=== PATIENT | female | born 1990 | race Caucasian/White ===

== ENCOUNTER 2017-10-30 13:48 | Emergency (ER) | payer OTHER ==
[2017-10-30] MEDS ORDERED: SODIUM CHLORIDE 0.9% 1,000 ML IV STA (14:41)
[2017-10-30] MEDS ORDERED: BENZOCAINE/MENTHOL SPRAY 1 GM/SPRAY AEROSOL TOPICAL STA (14:42)
[2017-10-30] MEDS ORDERED: RX INFO: IV CONTRAST WAS GIVEN 1 EACH MISC MISCELLANE PRN (14:42)
[2017-10-30] MEDS ORDERED: MORPHINE SULFATE 5 MG/ML SYRINGE IVP ONE (14:43)
[2017-10-30] MEDS ORDERED: ONDANSETRON 4 MG/2 ML VIAL IVP STA (14:43)
[2017-10-30 15:09] LABS: Appearance,Urine Clear (Clear); Bilirubin,Urine Negative (Negative); Glucose,Urine (UA) Negative (Negative); Ketones,Urine Negative (Negative); Leukocyte Esterase,Urine Large (Negative); Nitrite,Urine Negative (Negative); PH, Urine 6.5 (5.0-8.0); Particle Count 2316; Protein,Urine Negative (Negative); RBC,Urine 1 /hpf (0-5); Specific Gravity,Urine 1.013 (1.001-1.035); Squamous Epithelial Cell,Urine 3 /hpf (0-4); UA Billing (MACRO vs. MICRO) MICRO; Urobilinogen,Urine <2.0 mg/dL (<2.0); WBC,Urine 7 /hpf (0-5)
[2017-10-30 15:10] LABS: Basophils % (A) 0 %; CH 29.4; CHCM 33.7; Eosinophils # (A) 0.2 k/uL (0-0.7); Eosinophils % (A) 2 %; HCT 44.2 % (34.0-46.0); HGB 14.7 gm/dL (11.4-16.0); Luc % (Auto) 1; Lymphocytes # (A) 1.4 k/uL (1.0-4.8); Lymphocytes % (A) 14 %; MCH 29.1 pg (25.0-35.0); MCHC 33.2 g/dL (31.0-37.0); MCV 87.8 fL (80.0-100.0); Mean Platelet Volume 6.9; Monocytes # (A) 0.7 k/uL (0-1.0); Monocytes % (A) 7 %; Neutrophils # (A) 7.8 k/uL (1.3-7.7); Neutrophils % (A) 77 %; RBC 5.04 m/uL (3.80-5.40); RDW 14.1 % (11.5-15.5); WBC 10.2 k/uL (3.8-10.6); WBC (Perox) 9.86
[2017-10-30 15:15] LABS: Partial Thromboplastin Time 25.7 sec (22.0-30.0); Prothrombin Time 10.1 sec (9.0-12.0)
[2017-10-30 15:23] LABS: ALT 37 U/L (9-52); AST 24 U/L (14-36); Alkaline Phosphatase 67 U/L (38-126); Anion Gap 11 mmol/L; Blood Urea Nitrogen 13 mg/dL (7-17); Calcium 9.6 mg/dL (8.4-10.2); Carbon Dioxide 25 mmol/L (22-30); Chloride 104 mmol/L (98-107); Glucose 101 mg/dL (74-99); Non-African American GFR(MDRD) >60 (>60 ml/min/1.73 sqM); Potassium 4.1 mmol/L (3.5-5.1); Sodium 140 mmol/L (137-145); Total Bilirubin 0.5 mg/dL (0.2-1.3); Total Protein 7.9 g/dL (6.3-8.2)
--- NOTE | 2017-10-30 15:38 | ED ---
GI Bleed HPI - General Chief complaint: GI Bleed Stated complaint: rectal bleeding/pain Time Seen by Provider: 10/30/17 14:31 Source: patient, RN notes reviewed Mode of arrival: ambulatory Limitations: no limitations - History of Present Illness Initial comments: This is a 27-year-old female presents emergency Department chief complaint of rectal pain. Patient states that she's had increasing rectal pain last few days. She states this started after having multiple bowel movements of diarrhea. Patient is concerned that she's had prior rectal abscess with for prior surgeries. She states it's was several years ago. Patient denies any nausea or vomiting. She states that she has a burning type discomfort and noticed some blood and mucus. Patient denies any upper abdominal discomfort denies any dysuria hematuria. Denies any chance . - Related Data Home Medications Medication Instructions Recorded Confirmed Aubra 1 tab PO DAILY@1900 10/30/17 10/30/17 Citalopram Hydrobromide [CeleXA] 10 mg PO DAILY@1900 10/30/17 10/30/17 Previous Rx's Medication Instructions Recorded Hydrocortisone/Pramoxine 1 applic RECTAL BID #1 bottle 10/30/17 [Proctofoam-Hc 1%-1% Foam] Allergies Allergy/AdvReac Type Severity Reaction Status Date / Time No Known Allergies Allergy Verified 10/30/17 14:32 Review of Systems ROS Statement: Those systems with pertinent positive or pertinent negative responses have been documented in the HPI. ROS Other: All systems not noted in ROS Statement are negative. Past Medical History Past Medical History: No Reported History History of Any Multi-Drug Resistant Organisms: None Reported Past Surgical History: No Surgical Hx Reported Additional Past Surgical History / Comment(s): I&D of cyst Past Anesthesia/Blood Transfusion Reactions: No Reported Reaction Past Psychological History: No Psychological Hx Reported Smoking Status: Former smoker Past Alcohol Use History: None Reported Past Drug Use History: Marijuana General Exam Limitations: no limitations General appearance: alert, in no apparent distress Head exam: Present: atraumatic, normocephalic, normal inspection Neck exam: Present: normal inspection. Absent: tenderness, meningismus, lymphadenopathy Respiratory exam: Present: normal lung sounds bilaterally. Absent: respiratory distress, wheezes, rales, rhonchi, stridor Cardiovascular Exam: Present: regular rate, normal rhythm, normal heart sounds. Absent: systolic murmur, diastolic murmur, rubs, gallop, clicks GI/Abdominal exam: Present: soft, normal bowel sounds. Absent: distended, tenderness, guarding, rebound, rigid Rectal exam: Absent: normal inspection (Erythema and rash noted in the perianal region, no obvious hemorrhoids no obvious blood or open lacerations. Patient declined rectal) Back exam: Absent: CVA tenderness (R), CVA tenderness (L) Skin exam: Present: warm, dry, intact, normal color. Absent: rash Course Vital Signs 10/30/17 10/30/17 13:53 15:08 Temperature 98.8 F 98.2 F Pulse Rate 110 H 79 Respiratory 18 16 Rate Blood Pressure 156/72 115/70 O2 Sat by Pulse 96 96 Oximetry Medical Decision Making - Medical Decision Making 27-year-old female presents emergency Department chief complaint rectal pain, rectal bleeding. Patient had a history of rectal abscesses no evidence of infection fracture process on CT. Patient be given hydrocortisone cream, advised take stool softener as she has stool burden, continue to use Tucks pads and continues [id number] rectal care lidocaine jelly - Lab Data Result diagrams: 10/30/17 14:55 10/30/17 14:55 Lab Results 10/30/17 10/30/17 10/30/17 Range/Units 14:55 14:55 14:55 WBC 10.2 (3.8-10.6) k/uL RBC 5.04 (3.80-5.40) m/uL Hgb 14.7 (11.4-16.0) gm/dL Hct 44.2 (34.0-46.0) % MCV 87.8 (80.0-100.0) fL MCH 29.1 (25.0-35.0) pg MCHC 33.2 (31.0-37.0) g/dL RDW 14.1 (11.5-15.5) % Plt Count 240 (150-450) k/uL Neutrophils % 77 % Lymphocytes % 14 % Monocytes % 7 % Eosinophils % 2 % Basophils % 0 % Neutrophils # 7.8 H (1.3-7.7) k/uL Lymphocytes # 1.4 (1.0-4.8) k/uL Monocytes # 0.7 (0-1.0) k/uL Eosinophils # 0.2 (0-0.7) k/uL Basophils # 0.0 (0-0.2) k/uL PT 10.1 (9.0-12.0) sec INR 1.0 (<1.2) APTT 25.7 (22.0-30.0) sec Sodium 140 (137-145) mmol/L Potassium 4.1 (3.5-5.1) mmol/L Chloride 104 (98-107) mmol/L Carbon Dioxide 25 (22-30) mmol/L Anion Gap 11 mmol/L BUN 13 (7-17) mg/dL Creatinine 0.71 (0.52-1.04) mg/dL Est GFR (MDRD) Af Amer >60 (>60 ml/min/1.73 sqM) Est GFR (MDRD) Non-Af >60 (>60 ml/min/1.73 sqM) Glucose 101 H (74-99) mg/dL Calcium 9.6 (8.4-10.2) mg/dL Total Bilirubin 0.5 (0.2-1.3) mg/dL AST 24 (14-36) U/L ALT 37 (9-52) U/L Alkaline Phosphatase 67 (38-126) U/L Total Protein 7.9 (6.3-8.2) g/dL Albumin 4.2 (3.5-5.0) g/dL Urine Color Urine Appearance (Clear) Urine pH (5.0-8.0) Ur Specific [place] (1.001-1.035) Urine Protein (Negative) Urine Glucose (UA) (Negative) Urine Ketones (Negative) Urine Blood (Negative) Urine Nitrite (Negative) Urine Bilirubin (Negative) Urine Urobilinogen (<2.0) mg/dL Ur Leukocyte Esterase (Negative) Urine RBC (0-5) /hpf Urine WBC (0-5) /hpf Ur Squamous Epith Cells (0-4) /hpf Urine HCG, Qual (Not Detectd) 10/30/17 10/30/17 Range/Units 14:55 14:55 WBC (3.8-10.6) k/uL RBC (3.80-5.40) m/uL Hgb (11.4-16.0) gm/dL Hct (34.0-46.0) % MCV (80.0-100.0) fL MCH (25.0-35.0) pg MCHC (31.0-37.0) g/dL RDW (11.5-15.5) % Plt Count (150-450) k/uL Neutrophils % % Lymphocytes % % Monocytes % % Eosinophils % % Basophils % % Neutrophils # (1.3-7.7) k/uL Lymphocytes # (1.0-4.8) k/uL Monocytes # (0-1.0) k/uL Eosinophils # (0-0.7) k/uL Basophils # (0-0.2) k/uL PT (9.0-12.0) sec INR (<1.2) APTT (22.0-30.0) sec Sodium (137-145) mmol/L Potassium (3.5-5.1) mmol/L Chloride (98-107) mmol/L Carbon Dioxide (22-30) mmol/L Anion Gap mmol/L BUN (7-17) mg/dL Creatinine (0.52-1.04) mg/dL Est GFR (MDRD) Af Amer (>60 ml/min/1.73 sqM) Est GFR (MDRD) Non-Af (>60 ml/min/1.73 sqM) Glucose (74-99) mg/dL Calcium (8.4-10.2) mg/dL Total Bilirubin (0.2-1.3) mg/dL AST (14-36) U/L ALT (9-52) U/L Alkaline Phosphatase (38-126) U/L Total Protein (6.3-8.2) g/dL Albumin (3.5-5.0) g/dL Urine Color Yellow Urine Appearance Clear (Clear) Urine pH 6.5 (5.0-8.0) Ur Specific [place] 1.013 (1.001-1.035) Urine Protein Negative (Negative) Urine Glucose (UA) Negative (Negative) Urine Ketones Negative (Negative) Urine Blood Trace H (Negative) Urine Nitrite Negative (Negative) Urine Bilirubin Negative (Negative) Urine Urobilinogen <2.0 (<2.0) mg/dL Ur Leukocyte Esterase Large H (Negative) Urine RBC 1 (0-5) /hpf Urine WBC 7 H (0-5) /hpf Ur Squamous Epith Cells 3 (0-4) /hpf Urine HCG, Qual Not Detected (Not Detectd) Disposition Clinical Impression: Rectal pain, Hemorrhoids Disposition: HOME SELF-CARE Condition: Stable Instructions: Rectal Pain (ED) Additional Instructions: Please return to the Emergency Department if symptoms worsen or any other concerns. Prescriptions: Hydrocortisone/Pramoxine [Proctofoam-Hc 1%-1% Foam] 1 applic RECTAL BID #1 bottle Referrals: Randi Montgomery MD [Primary Care Provider] - 1-2 days Time of Disposition: 16:15
--- NOTE | 2017-10-30 15:44 | CT ---
EXAMINATION TYPE: CT abdomen pelvis w con DATE OF EXAM: 10/30/2017 COMPARISON: 09/17/2010 HISTORY: 27-year-old female with rectal bleeding and pain TECHNIQUE: Contiguous axial scanning of the abdomen and pelvis following administration of 100 ml Omn ipaque 300 IV contrast. Delayed images through the kidneys and coronal/sagittal reconstructions perf ormed. CT DLP: 1854 mGycm Automated exposure control for dose reduction was used. FINDINGS: Heart is normal size without pericardial effusion. Lung bases clear without pleural effusion. Liver enlarged measuring 18.8 cm craniocaudal. No focal lesion is seen. No biliary ductal dilatation. Portal venous system is patent Gallbladder, adrenal glands, kidneys, spleen with anterior splenule, and pancreas appear within jenny l limits. Scattered nonenlarged mesenteric lymph nodes are present. No dilated small bowel, free fluid, or free air. Normal appendix visualized. Moderate stool burden. No pericolonic inflammatory change. Mildly redundant sigmoid colon. Bladder is urine distended. Uterus and ovaries are visualized with follicular change. No abnormal flu id collection in the pelvis. Prominent but not enlarged right inguinal lymph node measures up to 1.3 cm, increased in size from . The distal rectum and anus are relatively collapsed and show no gross abnormality. Bones: No osseous destructive process. IMPRESSION: 1. THE DISTAL RECTUM AND ANUS ARE COLLAPSED AND SHOW NO GROSS ABNORMALITY. 2. MODERATE STOOL BURDEN. NO ACUTE INFLAMMATORY PROCESS IDENTIFIED IN THE ABDOMEN OR PELVIS. 3. BORDERLINE SIZE RIGHT INGUINAL LYMPH NODE MEASURING 1.3 CM PROBABLY REACTIVE/POST INFLAMMATORY. CL INICALLY CORRELATE. 4. HEPATOMEGALY AT 18.8 CM.
[2017-10-30] MEDS ORDERED: WITCH HAZEL 1 EACH MED..PAD TOPICAL STA (16:13)
[2017-10-30 16:42] VITALS: BP 121/66; PULSE 80; RESP 20; TEMP 98
== END 2017-10-30 16:42 | disposition home or self-care (01) ==
LOC: EC 13:48
DX: K64.9 Unspecified hemorrhoids (principal); Z87.891 Personal history of nicotine dependence; Z79.899 Other long term (current) drug therapy
CPT/HCPCS: 36415; 80053; 85025; 85610; 85730; 81001; 81025; 87086; 74177; 99285; 96374; 96375; 96361; J2405; Q9967; J2274

== ENCOUNTER 2018-07-03 12:27 | Emergency (ER) | payer OTHER ==
[2018-07-03 12:43] VITALS: RESP 18; TEMP 98.2
[2018-07-03 13:29] LABS: Appearance,Urine Clear (Clear); Bacteria,Urine Rare /hpf; Bilirubin,Urine Negative (Negative); Blood,Urine Negative (Negative); Color,Urine Yellow; Glucose,Urine (UA) Negative (Negative); Ketones,Urine Negative (Negative); Leukocyte Esterase,Urine Trace (Negative); Nitrite,Urine Negative (Negative); PH, Urine 6.5 (5.0-8.0); Protein,Urine Negative (Negative); RBC,Urine 1 /hpf (0-5); Specific Gravity,Urine 1.013 (1.001-1.035); Squamous Epithelial Cell,Urine 2 /hpf (0-4); Urobilinogen,Urine <2.0 mg/dL (<2.0); WBC,Urine 1 /hpf (0-5)
[2018-07-03] MEDS ORDERED: SODIUM CHLORIDE 0.9% 1,000 ML IV STA (13:41)
[2018-07-03 14:01] LABS: Basophils % (A) 0 %; Eosinophils # (A) 0.2 k/uL (0-0.7); Eosinophils % (A) 3 %; HCT 44.6 % (34.0-46.0); HGB 14.4 gm/dL (11.4-16.0); Lymphocytes % (A) 26 %; MCH 28.7 pg (25.0-35.0); MCHC 32.2 g/dL (31.0-37.0); Mean Platelet Volume 6.3; Monocytes # (A) 0.5 k/uL (0-1.0); Monocytes % (A) 6 %; Neutrophils # (A) 4.7 k/uL (1.3-7.7); Neutrophils % (A) 63 %; Platelet Count 278 k/uL (150-450); RBC 5.02 m/uL (3.80-5.40); RDW 13.3 % (11.5-15.5); WBC 7.5 k/uL (3.8-10.6)
[2018-07-03 14:14] LABS: ALT 35 U/L (9-52); AST 30 U/L (14-36); Alkaline Phosphatase 49 U/L (38-126); Anion Gap 8 mmol/L; Blood Urea Nitrogen 12 mg/dL (7-17); Calcium 9.1 mg/dL (8.4-10.2); Carbon Dioxide 23 mmol/L (22-30); Chloride 109 mmol/L (98-107); Glucose 106 mg/dL (74-99); Magnesium 1.9 mg/dL (1.6-2.3); Potassium 4.5 mmol/L (3.5-5.1); Sodium 140 mmol/L (137-145); Total Bilirubin 0.5 mg/dL (0.2-1.3); Total Protein 7.4 g/dL (6.3-8.2)
--- NOTE | 2018-07-03 14:35 | ED ---
Weakness HPI - General Chief complaint: Weakness Stated complaint: weakness Time Seen by Provider: 07/03/18 13:31 Source: patient, RN notes reviewed Mode of arrival: ambulatory Limitations: no limitations - History of Present Illness Initial comments: 28-year-old female presents emergency Department chief complaint of fatigue, denies fever or chills. Patient states that she felt that she had a fever, she felt hot flush but had no recorded temperature at home. Patient states that she 's had no cold like symptoms including sore throat, headache, dizziness, ear pain, cough or chest congestion. She states that she's been sleeping more than usual even when she gets up and sleeping she still tired. She is concerned about possible thyroid disease. Patient has no specific abdominal pain no dysuria no hematuria. She states that she is due for her menstrual cycle denies any chance . Patient states that she does take control. Patient denies any back pain, chest pain - Related Data Home Medications Medication Instructions Recorded Confirmed Citalopram Hydrobromide [CeleXA] 10 mg PO DAILY@1900 10/30/17 07/03/18 Aviane 0.10/0.02 Control 1 tab PO DAILY@1900 07/03/18 07/03/18 Ibuprofen [Motrin Ib] 400 mg PO Q6H PRN 07/03/18 07/03/18 Allergies Allergy/AdvReac Type Severity Reaction Status Date / Time No Known Allergies Allergy Verified 07/03/18 13:52 Review of Systems ROS Statement: Those systems with pertinent positive or pertinent negative responses have been documented in the HPI. ROS Other: All systems not noted in ROS Statement are negative. Past Medical History Past Medical History: No Reported History History of Any Multi-Drug Resistant Organisms: None Reported Past Surgical History: Section Additional Past Surgical History / Comment(s): I&D of cyst Past Anesthesia/Blood Transfusion Reactions: No Reported Reaction Past Psychological History: Anxiety Smoking Status: Current every day smoker Past Alcohol Use History: Occasional Past Drug Use History: Marijuana General Exam Limitations: no limitations General appearance: alert, in no apparent distress Head exam: Present: atraumatic, normocephalic, normal inspection Eye exam: Present: normal appearance, PERRL, EOMI. Absent: scleral icterus, conjunctival injection, periorbital swelling ENT exam: Present: normal exam, normal oropharynx, mucous membranes moist, TM's normal bilaterally, normal external ear exam Neck exam: Present: normal inspection, full ROM. Absent: tenderness, meningismus, lymphadenopathy Respiratory exam: Present: normal lung sounds bilaterally. Absent: respiratory distress, wheezes, rales, rhonchi, stridor Cardiovascular Exam: Present: regular rate, normal rhythm, normal heart sounds. Absent: systolic murmur, diastolic murmur, rubs, gallop, clicks GI/Abdominal exam: Present: soft, normal bowel sounds. Absent: distended, tenderness, guarding, rebound, rigid Neurological exam: Present: alert, oriented X3, CN II-XII intact Skin exam: Present: warm, dry, intact, normal color. Absent: rash Course Vital Signs 07/03/18 12:39 Temperature 98.2 F Pulse Rate 93 Respiratory 18 Rate Blood Pressure 113/77 O2 Sat by Pulse 100 Oximetry Medical Decision Making - Medical Decision Making 28 show female presented for generalized fatigue weakness. Patient has normal lab workup. Patient may have underlying viral illness or syndrome. Patient will be advised to follow-up with PCP and return for any worsening symptoms. - Lab Data Result diagrams: 07/03/18 13:49 07/03/18 13:49 Lab Results 07/03/18 07/03/18 07/03/18 Range/Units 12:43 12:43 13:49 WBC 7.5 (3.8-10.6) k/uL RBC 5.02 (3.80-5.40) m/uL Hgb 14.4 (11.4-16.0) gm/dL Hct 44.6 (34.0-46.0) % MCV 89.0 (80.0-100.0) fL MCH 28.7 (25.0-35.0) pg MCHC 32.2 (31.0-37.0) g/dL RDW 13.3 (11.5-15.5) % Plt Count 278 (150-450) k/uL Neutrophils % 63 % Lymphocytes % 26 % Monocytes % 6 % Eosinophils % 3 % Basophils % 0 % Neutrophils # 4.7 (1.3-7.7) k/uL Lymphocytes # 2.0 (1.0-4.8) k/uL Monocytes # 0.5 (0-1.0) k/uL Eosinophils # 0.2 (0-0.7) k/uL Basophils # 0.0 (0-0.2) k/uL Sodium (137-145) mmol/L Potassium (3.5-5.1) mmol/L Chloride (98-107) mmol/L Carbon Dioxide (22-30) mmol/L Anion Gap mmol/L BUN (7-17) mg/dL Creatinine (0.52-1.04) mg/dL Est GFR (CKD-EPI)AfAm (>60 ml/min/1.73 sqM) Est GFR (CKD-EPI)NonAf (>60 ml/min/1.73 sqM) Glucose (74-99) mg/dL Plasma Lactic Acid Sushil (0.7-2.0) mmol/L Calcium (8.4-10.2) mg/dL Magnesium (1.6-2.3) mg/dL Total Bilirubin (0.2-1.3) mg/dL AST (14-36) U/L ALT (9-52) U/L Alkaline Phosphatase (38-126) U/L Total Protein (6.3-8.2) g/dL Albumin (3.5-5.0) g/dL TSH (0.465-4.680) mIU/L Urine Color Yellow Urine Appearance Clear (Clear) Urine pH 6.5 (5.0-8.0) Ur Specific [place] 1.013 (1.001-1.035) Urine Protein Negative (Negative) Urine Glucose (UA) Negative (Negative) Urine Ketones Negative (Negative) Urine Blood Negative (Negative) Urine Nitrite Negative (Negative) Urine Bilirubin Negative (Negative) Urine Urobilinogen <2.0 (<2.0) mg/dL Ur Leukocyte Esterase Trace H (Negative) Urine RBC 1 (0-5) /hpf Urine WBC 1 (0-5) /hpf Ur Squamous Epith Cells 2 (0-4) /hpf Urine Bacteria Rare H (None) /hpf Urine HCG, Qual Not Detected (Not Detectd) Heterophile Antibody (Negative) 07/03/18 07/03/18 07/03/18 Range/Units 13:49 13:49 14:00 WBC (3.8-10.6) k/uL RBC (3.80-5.40) m/uL Hgb (11.4-16.0) gm/dL Hct (34.0-46.0) % MCV (80.0-100.0) fL MCH (25.0-35.0) pg MCHC (31.0-37.0) g/dL RDW (11.5-15.5) % Plt Count (150-450) k/uL Neutrophils % % Lymphocytes % % Monocytes % % Eosinophils % % Basophils % % Neutrophils # (1.3-7.7) k/uL Lymphocytes # (1.0-4.8) k/uL Monocytes # (0-1.0) k/uL Eosinophils # (0-0.7) k/uL Basophils # (0-0.2) k/uL Sodium 140 (137-145) mmol/L Potassium 4.5 (3.5-5.1) mmol/L Chloride 109 H (98-107) mmol/L Carbon Dioxide 23 (22-30) mmol/L Anion Gap 8 mmol/L BUN 12 (7-17) mg/dL Creatinine 0.69 (0.52-1.04) mg/dL Est GFR (CKD-EPI)AfAm >90 (>60 ml/min/1.73 sqM) Est GFR (CKD-EPI)NonAf >90 (>60 ml/min/1.73 sqM) Glucose 106 H (74-99) mg/dL Plasma Lactic Acid Sushil 1.0 (0.7-2.0) mmol/L Calcium 9.1 (8.4-10.2) mg/dL Magnesium 1.9 (1.6-2.3) mg/dL Total Bilirubin 0.5 (0.2-1.3) mg/dL AST 30 (14-36) U/L ALT 35 (9-52) U/L Alkaline Phosphatase 49 (38-126) U/L Total Protein 7.4 (6.3-8.2) g/dL Albumin 4.0 (3.5-5.0) g/dL TSH 0.472 (0.465-4.680) mIU/L Urine Color Urine Appearance (Clear) Urine pH (5.0-8.0) Ur Specific [place] (1.001-1.035) Urine Protein (Negative) Urine Glucose (UA) (Negative) Urine Ketones (Negative) Urine Blood (Negative) Urine Nitrite (Negative) Urine Bilirubin (Negative) Urine Urobilinogen (<2.0) mg/dL Ur Leukocyte Esterase (Negative) Urine RBC (0-5) /hpf Urine WBC (0-5) /hpf Ur Squamous Epith Cells (0-4) /hpf Urine Bacteria (None) /hpf Urine HCG, Qual (Not Detectd) Heterophile Antibody Negative (Negative) Disposition Clinical Impression: Fatigue, Viral syndrome Disposition: HOME SELF-CARE Condition: Stable Instructions: Fatigue (ED), Weakness (ED) Additional Instructions: Please return to the Emergency Department if symptoms worsen or any other concerns. Is patient prescribed a controlled substance at d/c from ED?: No Referrals: Randi Montgomery MD [Primary Care Provider] - 1-2 days Time of Disposition: 14:58
[2018-07-03 15:17] VITALS: BP 136/69; PULSE 79
== END 2018-07-03 15:16 | disposition home or self-care (01) ==
LOC: EC 12:27
DX: B34.9 Viral infection, unspecified (principal); F41.9 Anxiety disorder, unspecified; F17.200 Nicotine dependence, unspecified, uncomplicated; Z79.3 Long term (current) use of hormonal contraceptives; Z79.899 Other long term (current) drug therapy
CPT/HCPCS: 36415; 80053; 81001; 81025; 83605; 83735; 84443; 85025; 86308; 96360; 99284

== ENCOUNTER 2018-09-30 15:37 | Emergency (ER) | payer OTHER ==
[2018-09-30 16:07] VITALS: RESP 18; TEMP 98.5
[2018-09-30] MEDS ORDERED: SODIUM CHLORIDE 0.9% 1,000 ML IV ONE (16:37)
[2018-09-30] MEDS ORDERED: methylPREDNISolone SOD SUCCI 125 MG/2 ML VIAL IV ONE (16:37)
[2018-09-30] MEDS ORDERED: IPRATROPIUM-ALBUTEROL 3 ML NEB INHALATION STA (16:37)
--- NOTE | 2018-09-30 16:51 | ED ---
General Adult HPI - General Chief complaint: Upper Respiratory Infection Stated complaint: Abd pain Time Seen by Provider: 09/30/18 16:16 Source: patient Mode of arrival: ambulatory Limitations: no limitations - History of Present Illness Initial comments: Residual female presenting with 1 week of harsh cough, subjective fevers, headache and generalized fatigue. She states that today she began to develop sharp stabbing right lower quadrant pain that is constant, not alleviated or exacerbated by anything, not accompanied by any other symptoms. She denies any nausea vomiting or diarrhea. Cough is productive and is worsening. She's been trying DayQuil without relief. - Related Data Home Medications Medication Instructions Recorded Confirmed Citalopram Hydrobromide [CeleXA] 10 mg PO DAILY@189910/30/17 07/03/18 Aviane 0.10/0.02 Control 1 tab PO DAILY@189907/03/18 07/03/18 Ibuprofen [Motrin Ib] 400 mg PO Q6H PRN 07/03/18 07/03/18 Previous Rx's Medication Instructions Recorded Albuterol Inhaler [Ventolin Hfa 1 - 2 puff INHALATION RT-Q6H PRN 09/30/18 Inhaler] #1 inhaler Dicyclomine [Bentyl] 20 mg PO QID #20 tablet 09/30/18 predniSONE 40 mg PO DAILY 5 Days #10 tab 09/30/18 Allergies Allergy/AdvReac Type Severity Reaction Status Date / Time No Known Allergies Allergy Verified 07/03/18 13:52 Review of Systems ROS Statement: Those systems with pertinent positive or pertinent negative responses have been documented in the HPI. Review of Systems Constitutional: Denies fever, chills Eyes: Denies change in vision, Denies pain Ears, nose, mouth, throat: Denies headaches, Denies sore throat Cardiovascular: Denies chest pain. Denies palpitations Respiratory: Denies shortness of breath, Positive cough Gastrointestinal: Positive abdominal pain. Denies nausea, vomiting, diarrhea. Genitourinary: Denies hematuria, Denies infections Musculoskeletal: Denies pain, Denies swelling Integumentary: Denies rash Neurological: Positive headache, focal weakness, focal numbness Psychiatric: Denies anxiety, Denies depression Hematologic/Lymphatic: Denies easy bleeding or bruising ROS Other: All systems not noted in ROS Statement are negative. Past Medical History Past Medical History: No Reported History History of Any Multi-Drug Resistant Organisms: None Reported Past Surgical History: Section Additional Past Surgical History / Comment(s): I&D of cyst Past Anesthesia/Blood Transfusion Reactions: No Reported Reaction Past Psychological History: Anxiety Smoking Status: Current every day smoker Past Alcohol Use History: Occasional Past Drug Use History: Marijuana General Exam - General Exam Comments Initial Comments: General: Awake, alert, No acute Distress HENT: Normocephalic. Atraumatic. No erythematous TM bilaterally. Post- oropharyngeal erythema Eyes: PERRL. EOMI. No scleral icterus. No injected conjunctiva Neck: Full ROM Chest/Lungs: Bilateral expiratory wheeze and right lower lung field rhonchi. Cardiac: Regular rate, rhythm. No murmurs or rubs Abdomen/GI: Soft, right lower quadrant tenderness. Positive McBurney's point. nondistended. No rebound, guarding, or rigidity. Musculoskeletal: Full ROM Skin: Warm, dry, intact Neurologic: A/Ox3, no weakness, no sensory deficit, no abnormal gait, no coordination deficit Limitations: no limitations Course Vital Signs 09/30/18 09/30/18 09/30/18 16:05 17:03 17:10 Temperature 98.5 F Pulse Rate 64 66 70 Respiratory 18 Rate Blood Pressure 121/74 O2 Sat by Pulse 96 Oximetry 09/30/18 09/30/18 09/30/18 18:07 18:22 19:00 Temperature Pulse Rate 68 89 Respiratory 18 18 Rate Blood Pressure 123/73 112/68 O2 Sat by Pulse 98 93 L 97 Oximetry Medical Decision Making - Medical Decision Making 28-year-old female presenting with URI symptoms and abdominal pain. Initial exam the patient is awake, alert, no acute distress. VSS. Patient's laboratory workup revealed hyperkalemia however the result was immobilized and the patient had no kidney dysfunction. Did not to treat the hyperkalemia. The remainder the patient's laboratory workup was negative for acute process. Chest x-ray and CT abdomen and pelvis were also negative for acute process. She 's a gallstone was seen however the patient has no right upper quadrant tenderness on exam. The patient denied any vaginal bleeding or discharge. Patient initially was complaining of headache and neck pain this is been ongoing for a week. I offered the patient LP but she declined. Very low suspicion for bacterial meningitis at this time. The patient was given prescriptions for prednisone and albuterol inhaler for bronchitis as well as Bentyl for abdominal cramping. The patient was instructed to RTER if her abdominal pain worsens, especially over the next 8-12 hours. No further emergent workup indicated. The patient was given return to ED instructions. They were instructed to follow up with their primary care provider. Stable for discharge at this time. - Lab Data Result diagrams: 09/30/18 17:03 09/30/18 17:03 Lab Results 09/30/18 09/30/18 09/30/18 Range/Units 17:03 17:03 17:03 WBC 8.4 (3.8-10.6) k/uL RBC 4.76 (3.80-5.40) m/uL Hgb 14.4 (11.4-16.0) gm/dL Hct 42.4 (34.0-46.0) % MCV 89.0 (80.0-100.0) fL MCH 30.3 (25.0-35.0) pg MCHC 34.1 (31.0-37.0) g/dL RDW 13.3 (11.5-15.5) % Plt Count 216 (150-450) k/uL Neutrophils % 63 % Lymphocytes % 26 % Monocytes % 6 % Eosinophils % 4 % Basophils % 0 % Neutrophils # 5.3 (1.3-7.7) k/uL Lymphocytes # 2.2 (1.0-4.8) k/uL Monocytes # 0.5 (0-1.0) k/uL Eosinophils # 0.3 (0-0.7) k/uL Basophils # 0.0 (0-0.2) k/uL Sodium 141 (137-145) mmol/L Potassium 5.7 H (3.5-5.1) mmol/L Chloride 110 H (98-107) mmol/L Carbon Dioxide 20 L (22-30) mmol/L Anion Gap 11 mmol/L BUN 10 (7-17) mg/dL Creatinine 0.75 (0.52-1.04) mg/dL Est GFR (CKD-EPI)AfAm >90 (>60 ml/min/1.73 sqM) Est GFR (CKD-EPI)NonAf >90 (>60 ml/min/1.73 sqM) Glucose 82 (74-99) mg/dL Calcium 9.7 (8.4-10.2) mg/dL Urine Color Urine Appearance (Clear) Urine pH (5.0-8.0) Ur Specific [place] (1.001-1.035) Urine Protein (Negative) Urine Glucose (UA) (Negative) Urine Ketones (Negative) Urine Blood (Negative) Urine Nitrite (Negative) Urine Bilirubin (Negative) Urine Urobilinogen (<2.0) mg/dL Ur Leukocyte Esterase (Negative) Urine WBC (0-5) /hpf Ur Squamous Epith Cells (0-4) /hpf Urine Bacteria (None) /hpf Urine HCG, Qual Not Detected (Not Detectd) Heterophile Antibody (Negative) Influenza Type A RNA (Not Detectd) Influenza Type B (PCR) (Not Detectd) Group A Strep Rapid (Negative) 09/30/18 09/30/18 09/30/18 Range/Units 17:03 17:03 17:03 WBC (3.8-10.6) k/uL RBC (3.80-5.40) m/uL Hgb (11.4-16.0) gm/dL Hct (34.0-46.0) % MCV (80.0-100.0) fL MCH (25.0-35.0) pg MCHC (31.0-37.0) g/dL RDW (11.5-15.5) % Plt Count (150-450) k/uL Neutrophils % % Lymphocytes % % Monocytes % % Eosinophils % % Basophils % % Neutrophils # (1.3-7.7) k/uL Lymphocytes # (1.0-4.8) k/uL Monocytes # (0-1.0) k/uL Eosinophils # (0-0.7) k/uL Basophils # (0-0.2) k/uL Sodium (137-145) mmol/L Potassium (3.5-5.1) mmol/L Chloride (98-107) mmol/L Carbon Dioxide (22-30) mmol/L Anion Gap mmol/L BUN (7-17) mg/dL Creatinine (0.52-1.04) mg/dL Est GFR (CKD-EPI)AfAm (>60 ml/min/1.73 sqM) Est GFR (CKD-EPI)NonAf (>60 ml/min/1.73 sqM) Glucose (74-99) mg/dL Calcium (8.4-10.2) mg/dL Urine Color Light Yellow Urine Appearance Cloudy H (Clear) Urine pH 8.0 (5.0-8.0) Ur Specific [place] 1.011 (1.001-1.035) Urine Protein Negative (Negative) Urine Glucose (UA) Negative (Negative) Urine Ketones Negative (Negative) Urine Blood Negative (Negative) Urine Nitrite Negative (Negative) Urine Bilirubin Negative (Negative) Urine Urobilinogen <2.0 (<2.0) mg/dL Ur Leukocyte Esterase Small H (Negative) Urine WBC 6 H (0-5) /hpf Ur Squamous Epith Cells 8 H (0-4) /hpf Urine Bacteria Rare H (None) /hpf Urine HCG, Qual (Not Detectd) Heterophile Antibody (Negative) Influenza Type A RNA Not Detected (Not Detectd) Influenza Type B (PCR) Not Detected (Not Detectd) Group A Strep Rapid Negative (Negative) 09/30/18 Range/Units 17:03 WBC (3.8-10.6) k/uL RBC (3.80-5.40) m/uL Hgb (11.4-16.0) gm/dL Hct (34.0-46.0) % MCV (80.0-100.0) fL MCH (25.0-35.0) pg MCHC (31.0-37.0) g/dL RDW (11.5-15.5) % Plt Count (150-450) k/uL Neutrophils % % Lymphocytes % % Monocytes % % Eosinophils % % Basophils % % Neutrophils # (1.3-7.7) k/uL Lymphocytes # (1.0-4.8) k/uL Monocytes # (0-1.0) k/uL Eosinophils # (0-0.7) k/uL Basophils # (0-0.2) k/uL Sodium (137-145) mmol/L Potassium (3.5-5.1) mmol/L Chloride (98-107) mmol/L Carbon Dioxide (22-30) mmol/L Anion Gap mmol/L BUN (7-17) mg/dL Creatinine (0.52-1.04) mg/dL Est GFR (CKD-EPI)AfAm (>60 ml/min/1.73 sqM) Est GFR (CKD-EPI)NonAf (>60 ml/min/1.73 sqM) Glucose (74-99) mg/dL Calcium (8.4-10.2) mg/dL Urine Color Urine Appearance (Clear) Urine pH (5.0-8.0) Ur Specific [place] (1.001-1.035) Urine Protein (Negative) Urine Glucose (UA) (Negative) Urine Ketones (Negative) Urine Blood (Negative) Urine Nitrite (Negative) Urine Bilirubin (Negative) Urine Urobilinogen (<2.0) mg/dL Ur Leukocyte Esterase (Negative) Urine WBC (0-5) /hpf Ur Squamous Epith Cells (0-4) /hpf Urine Bacteria (None) /hpf Urine HCG, Qual (Not Detectd) Heterophile Antibody Negative (Negative) Influenza Type A RNA (Not Detectd) Influenza Type B (PCR) (Not Detectd) Group A Strep Rapid (Negative) Disposition Clinical Impression: Abdominal pain, Bronchitis, URI (upper respiratory infection) Disposition: HOME SELF-CARE Condition: Good Instructions: Upper Respiratory Infection (ED), Abdominal Pain (ED) Prescriptions: Albuterol Inhaler [Ventolin Hfa Inhaler] 1 - 2 puff INHALATION RT-Q6H PRN #1 inhaler PRN Reason: Wheezing Dicyclomine [Bentyl] 20 mg PO QID #20 tablet predniSONE 40 mg PO DAILY 5 Days #10 tab Is patient prescribed a controlled substance at d/c from ED?: No Referrals: Randi Montgomery MD [Primary Care Provider] - 1-2 days
[2018-09-30 17:19] LABS: Basophils % (A) 0 %; Eosinophils # (A) 0.3 k/uL (0-0.7); Eosinophils % (A) 4 %; HCT 42.4 % (34.0-46.0); HGB 14.4 gm/dL (11.4-16.0); Lymphocytes # (A) 2.2 k/uL (1.0-4.8); Lymphocytes % (A) 26 %; MCH 30.3 pg (25.0-35.0); MCHC 34.1 g/dL (31.0-37.0); Mean Platelet Volume 7.8; Monocytes # (A) 0.5 k/uL (0-1.0); Monocytes % (A) 6 %; Neutrophils # (A) 5.3 k/uL (1.3-7.7); Neutrophils % (A) 63 %; Platelet Count 216 k/uL (150-450); RBC 4.76 m/uL (3.80-5.40); RDW 13.3 % (11.5-15.5); WBC 8.4 k/uL (3.8-10.6)
[2018-09-30 17:23] LABS: Appearance,Urine Cloudy (Clear); Bacteria,Urine Rare /hpf; Bilirubin,Urine Negative (Negative); Blood,Urine Negative (Negative); Color,Urine Light Yellow; Glucose,Urine (UA) Negative (Negative); Ketones,Urine Negative (Negative); Leukocyte Esterase,Urine Small (Negative); Nitrite,Urine Negative (Negative); Protein,Urine Negative (Negative); Specific Gravity,Urine 1.011 (1.001-1.035); Squamous Epithelial Cell,Urine 8 /hpf (0-4); Urobilinogen,Urine <2.0 mg/dL (<2.0)
[2018-09-30 17:31] LABS: Anion Gap 11 mmol/L; Blood Urea Nitrogen 10 mg/dL (7-17); Calcium 9.7 mg/dL (8.4-10.2); Carbon Dioxide 20 mmol/L (22-30); Chloride 110 mmol/L (98-107); Glucose 82 mg/dL (74-99); Sodium 141 mmol/L (137-145)
[2018-09-30 17:32] LABS: Potassium 5.7 mmol/L (3.5-5.1)
[2018-09-30] MEDS ORDERED: KETOROLAC 30 MG/ML 1 ML VIAL IVP SCH (18:00)
--- NOTE | 2018-09-30 18:07 | XR ---
EXAMINATION TYPE: XR chest 2V DATE OF EXAM: 09/30/2018 CLINICAL HISTORY: Pain upper respiratory infection TECHNIQUE: Frontal and lateral views of the chest are obtained. COMPARISON: None FINDINGS: The heart size is normal. The pulmonary vasculature is normal. The lungs are clear. Necklace overlies left apex. IMPRESSION: 1. No acute pulmonary process.
[2018-09-30 19:16] VITALS: PULSE 89
--- NOTE | 2018-09-30 19:50 | CT ---
EXAMINATION TYPE: CT abdomen pelvis w con DATE OF EXAM: 09/30/2018 COMPARISON: 10/30/2017 INDICATION: Right sided pain with nausea and diarrhea DLP: 1299.6 mGycm, Automated exposure control for dose reduction was used. CONTRAST: 100 mL of Isovue 300. Study performed without Oral Contrast TECHNIQUE: Axial images were obtained from above the diaphragm to the pubic rami in the axial plane a t 5 mm thick sections. Reconstructed images are reviewed on the computer in the coronal plane. FINDINGS: Limited CT sections are obtained the lung bases. The lung bases are clear. CT ABDOMEN: Liver: Hepatomegaly measuring 20.9 cm. Normal less than 15.5 cm. This is increased from comparison. Spleen: Normal. Splenule is present. Pancreas: Normal Adrenal glands: The adrenal glands are normal. Gallbladder: Punctate gallstone is noted. Kidneys: No masses are evident. No hydronephrosis is present. No cysts are present. Delayed images were obtained through the kidneys, which remain unremarkable. Aorta: Normal Inferior vena cava: Normal. CT PELVIS: Loops of bowel within the abdomen and pelvis are normal. Studies without oral contrast limiting t he evaluation. Appendix: Normal as visualized. Urinary bladder: Normal. Genitourinary structures: Uterus and ovaries are unremarkable. Osseous structures: No suspicious lytic or sclerotic lesions. IMPRESSIONS: 1. Small gallstone. 2. Hepatomegaly.
[2018-09-30 20:12] VITALS: BP 115/72
== END 2018-09-30 20:13 | disposition home or self-care (01) ==
LOC: EC 15:37
DX: J40 Bronchitis, not specified as acute or chronic (principal); J06.9 Acute upper respiratory infection, unspecified; R10.31 Right lower quadrant pain; Z32.02 Encounter for pregnancy test, result negative; F41.9 Anxiety disorder, unspecified; F17.200 Nicotine dependence, unspecified, uncomplicated; Z79.899 Other long term (current) drug therapy
CPT/HCPCS: 99284; 96374; 96375; 96361 ×2; 36415; 94640; 80048; 85025; 86308; 81001; 81025; 87086; 87081; 87430; 87502; 71046; 74177; J2930; J1885; Q9967

== ENCOUNTER 2020-01-11 03:46 | Emergency (ER) | payer OTHER ==
[2020-01-11 03:56] VITALS: RESP 18; TEMP 97.9
[2020-01-11] MEDS ORDERED: methylPREDNISolone SOD SUCCI 125 MG/2 ML VIAL IV STA (04:31)
[2020-01-11] MEDS ORDERED: MORPHINE SULFATE 4 MG/ML SYRINGE IV STA (04:31)
[2020-01-11 04:44] LABS: Basophils % (A) 0 %; Eosinophils # (A) 0.1 k/uL (0-0.7); Eosinophils % (A) 1 %; HCT 46.3 % (34.0-46.0); HGB 15.3 gm/dL (11.4-16.0); Lymphocytes # (A) 1.4 k/uL (1.0-4.8); Lymphocytes % (A) 17 %; MCH 29.5 pg (25.0-35.0); MCV 89.3 fL (80.0-100.0); Mean Platelet Volume 7.4; Monocytes # (A) 0.4 k/uL (0-1.0); Monocytes % (A) 5 %; Neutrophils % (A) 75 %; Platelet Count 213 k/uL (150-450); RBC 5.18 m/uL (3.80-5.40)
[2020-01-11 04:49] LABS: African American GFR (CKD) >90 (>60 ml/min/1.73 sqM); Anion Gap 9 mmol/L; Blood Urea Nitrogen 10 mg/dL (7-17); Calcium 9.4 mg/dL (8.4-10.2); Carbon Dioxide 26 mmol/L (22-30); Chloride 104 mmol/L (98-107); Glucose 101 mg/dL (74-99); INR 0.9 (<1.2); Non-African American GFR(CKD) >90 (>60 ml/min/1.73 sqM); Sodium 139 mmol/L (137-145)
[2020-01-11 04:50] LABS: Partial Thromboplastin Time 24.4 sec (22.0-30.0); Prothrombin Time 9.7 sec (9.0-12.0)
[2020-01-11 04:51] LABS: Potassium 4.7 mmol/L (3.5-5.1)
--- NOTE | 2020-01-11 05:11 | CT ---
EXAMINATION TYPE: CT lumbar spine w con DATE OF EXAM: 01/11/2020 COMPARISON: HISTORY: pain that radiates down right leg and upper back CT DLP: 1716.60 mGycm Automated exposure control for dose reduction was used. CONTRAST: Performed with IV Contrast, patient injected with 100 mL of Isovue 300. Multiple axial sections were obtained from the level of T12-S4 vertebra with no contrast. Lumbar vertebra have normal alignment. Disc spaces are normal. There is mild posterior central L5-S1 lumbar disc herniation. There is developmentally adequate spinal canal and no spinal stenosis. Sacroi liac joints appear normal. There is no lumbar paraspinal mass. There is no compression fracture. I se e no focal bone destruction. There is small posterior disc bulging also at L4-5. The contrast images show no pathologic enhancement. Abdominal aorta appears normal. Kidneys show satisfactory contrast op acification. There is no hydronephrosis. No renal calculus. IMPRESSION: No spinal stenosis. No fracture. Posterior mild central L5-S1 lumbar disc herniation increased in siz e compared to old CT scan.
--- NOTE | 2020-01-11 06:28 | ED ---
Back Pain HPI - General Chief Complaint: Back Pain/Injury Stated Complaint: Back Pain Time Seen by Provider: 01/11/20 03:51 Source: patient, EMS Limitations: no limitations - History of Present Illness Initial Comments: This patient is a 29-year-old woman presenting to be evaluated for low back pain that also does radiate to her left leg. The patient states that she had been at [facility] in the early afternoon, probably around 1:30 PM. She states that they were performing a lumbar puncture to check her CSF pressure related to concerns about possible pseudotumor. The patient states that apparently there was some difficulty in the procedure did require multiple attempts. She states that she had some soreness and then went home and the soreness only increased. She states that it is a sharp pain, it becomes severe if she is up and moving. She states that it is tolerable when she lies still. No loss of bladder or bowel function. No saddle anesthesia. MD Complaint: back pain -: hour(s) Similar Symptoms Previously: No Place: home Radiation: left leg Severity: severe Quality: sharp Consistency: intermittent Improves With: immobilization Worsens With: movement Context: other (Following attempted lumbar puncture.) Associated Symptoms: denies other symptoms - Related Data Home Medications Medication Instructions Recorded Confirmed Citalopram Hydrobromide [CeleXA] 10 mg PO DAILY@1900 10/30/17 07/03/18 Aviane 0.10/0.02 Control 1 tab PO DAILY@1900 07/03/18 07/03/18 Ibuprofen [Motrin Ib] 400 mg PO Q6H PRN 07/03/18 07/03/18 Previous Rx's Medication Instructions Recorded Albuterol Inhaler [Ventolin Hfa 1 - 2 puff INHALATION RT-Q6H PRN 09/30/18 Inhaler] #1 inhaler Dicyclomine [Bentyl] 20 mg PO QID #20 tablet 09/30/18 predniSONE [Deltasone] 40 mg PO DAILY 5 Days #10 tab 09/30/18 Methocarbamol [Robaxin-750] 750 mg PO TID PRN #30 tablet 01/11/20 predniSONE 60 mg PO DAILY #30 tab 01/11/20 Allergies Allergy/AdvReac Type Severity Reaction Status Date / Time No Known Allergies Allergy Verified 07/03/18 13:52 Review of Systems ROS Statement: Those systems with pertinent positive or pertinent negative responses have been documented in the HPI. ROS Other: All systems not noted in ROS Statement are negative. Constitutional: Denies: fever, chills, weakness Respiratory: Denies: cough, dyspnea Cardiovascular: Denies: chest pain, palpitations, edema Gastrointestinal: Denies: abdominal pain, vomiting, diarrhea, constipation Genitourinary: Denies: dysuria, hematuria Musculoskeletal: Reports: as per HPI, back pain Skin: Denies: rash Neurological: Denies: headache, weakness, numbness, paresthesias Past Medical History Past Medical History: No Reported History History of Any Multi-Drug Resistant Organisms: None Reported Past Surgical History: Section Additional Past Surgical History / Comment(s): I&D of cyst Past Anesthesia/Blood Transfusion Reactions: No Reported Reaction Past Psychological History: Anxiety, Bipolar, PTSD Smoking Status: Current every day smoker Past Alcohol Use History: Occasional Past Drug Use History: Marijuana General Exam Limitations: no limitations General appearance: alert, in no apparent distress Head exam: Present: atraumatic, normocephalic Neck exam: Present: normal inspection, full ROM. Absent: tenderness, meningismus Respiratory exam: Present: normal lung sounds bilaterally. Absent: respiratory distress, wheezes, rales, rhonchi, stridor Cardiovascular Exam: Present: regular rate, normal rhythm, normal heart sounds. Absent: systolic murmur, diastolic murmur, rubs, gallop GI/Abdominal exam: Present: soft. Absent: tenderness, guarding, rebound Extremities exam: Present: normal inspection, normal capillary refill. Absent: pedal edema, calf tenderness Back exam: Present: normal inspection, other (Ur some localized tenderness at the site of the procedure.). Absent: CVA tenderness (R), CVA tenderness (L), p araspinal tenderness, vertebral tenderness Neurological exam: Present: alert, normal gait, reflexes normal. Absent: motor sensory deficit Skin exam: Present: warm, dry, intact, normal color. Absent: rash Course Vital Signs 01/11/20 01/11/20 03:49 06:44 Temperature 97.9 F Pulse Rate 74 70 Respiratory 18 18 Rate Blood Pressure 139/83 120/76 O2 Sat by Pulse 98 97 Oximetry Medical Decision Making - Medical Decision Making Shouldn't is 29-year-old woman presenting requesting pain relief following lumbar puncture. The imaging study is unremarkable. She was given analgesia and was feeling much better. She was ambulating without any difficulty. No signs of any developing cauda equina. Discussed appropriate further care and follow-up. - Lab Data Result diagrams: 01/11/20 04:10 01/11/20 04:10 Lab Results 01/11/20 01/11/20 01/11/20 Range/Units 04:10 04:10 04:10 WBC 8.0 (3.8-10.6) k/uL RBC 5.18 (3.80-5.40) m/uL Hgb 15.3 (11.4-16.0) gm/dL Hct 46.3 H (34.0-46.0) % MCV 89.3 (80.0-100.0) fL MCH 29.5 (25.0-35.0) pg MCHC 33.0 (31.0-37.0) g/dL RDW 13.0 (11.5-15.5) % Plt Count 213 (150-450) k/uL Neutrophils % 75 % Lymphocytes % 17 % Monocytes % 5 % Eosinophils % 1 % Basophils % 0 % Neutrophils # 6.0 (1.3-7.7) k/uL Lymphocytes # 1.4 (1.0-4.8) k/uL Monocytes # 0.4 (0-1.0) k/uL Eosinophils # 0.1 (0-0.7) k/uL Basophils # 0.0 (0-0.2) k/uL PT 9.7 (9.0-12.0) sec INR 0.9 (<1.2) APTT 24.4 (22.0-30.0) sec Sodium 139 (137-145) mmol/L Potassium 4.7 (3.5-5.1) mmol/L Chloride 104 (98-107) mmol/L Carbon Dioxide 26 (22-30) mmol/L Anion Gap 9 mmol/L BUN 10 (7-17) mg/dL Creatinine 0.69 (0.52-1.04) mg/dL Est GFR (CKD-EPI)AfAm >90 (>60 ml/min/1.73 sqM) Est GFR (CKD-EPI)NonAf >90 (>60 ml/min/1.73 sqM) Glucose 101 H (74-99) mg/dL Calcium 9.4 (8.4-10.2) mg/dL Disposition Clinical Impression: Back pain Disposition: HOME SELF-CARE Condition: Good Instructions (If sedation given, give patient instructions): Acute Low Back Pain (ED) Prescriptions: predniSONE 60 mg PO DAILY #30 tab Methocarbamol [Robaxin-750] 750 mg PO TID PRN #30 tablet PRN Reason: pain Is patient prescribed a controlled substance at d/c from ED?: No Referrals: Randi Montgomery MD [Primary Care Provider] - 1-2 days
[2020-01-11 06:46] VITALS: BP 120/76; PULSE 70
== END 2020-01-11 06:47 | disposition home or self-care (01) ==
LOC: EC 03:46
DX: M54.5 Low back pain (principal); G89.18 Other acute postprocedural pain; M79.605 Pain in left leg; F31.9 Bipolar disorder, unspecified; F41.9 Anxiety disorder, unspecified; F17.200 Nicotine dependence, unspecified, uncomplicated; Z79.3 Long term (current) use of hormonal contraceptives; Z79.899 Other long term (current) drug therapy
CPT/HCPCS: 99284; 96374; 96375; 36415; 80048; 85025; 85610; 85730; 72132; J2270; J2930; Q9967

== ENCOUNTER 2020-09-07 20:52 | Inpatient (IN) | payer MEDICAID, OTHER ==
--- NOTE | 2020-09-07 21:06 | ED ---
General Adult HPI - General Chief complaint: Psychiatric Symptoms Stated complaint: Mental health Time Seen by Provider: 09/07/20 21:00 Source: patient Mode of arrival: ambulatory Limitations: no limitations - History of Present Illness Initial comments: Dictation was produced using [employer] dictation software. please excuse any grammatical, word or spelling errors. This patient was cared for during a federal and state declared state of emergency secondary to Covid 19 Chief Complaint: 30-year-old female presents with suicidal ideation History of Present Illness: She is a 30-year-old female she's been under a lot of personal stress recently. She's been feeling suicidal. Patient's plan to overdose on pills. Patient states she has not. She denies any visual auditory hallucinations. She presents to the emergency today with her . Patient does have history of personality disorders. She denies being diagnosed with any sort of specific psychiatric disease. The ROS documented in this emergency department record has been reviewed and confirmed by me. Those systems with pertinent positive or negative responses have been documented in the HPI. All other systems are other negative and/or noncontributory. PHYSICAL EXAM: General Impression: Alert and oriented x3, not in acute distress HEENT: Normocephalic atraumatic, extra-ocular movements intact, pupils equal and reactive to light bilaterally, mucous membranes moist. Cardiovascular: Heart regular rate and rhythm Chest: Able to complete full sentences, no retractions, no tachypnea Abdomen: abdomen soft, non-tender, non-distended, no organomegaly Musculoskeletal: Pulses present and equal in all extremities, no peripheral edema Motor: no focal deficits noted Neurological: CN II-XII grossly intact, no focal motor or sensory deficits noted Skin: Intact with no visualized rashes Psych: Tearful ED course: 30-year-old male presents with suicidal ideation. Signs upon arrival shows heart rate of 106, rest vital signs within acceptable limits. Patient does not appear to be psychotic at this time. Patient evaluated by EPS recommended inpatient psychiatric admission. Patient is voluntarily admitted. - Related Data Home Medications Medication Instructions Recorded Confirmed Citalopram Hydrobromide [CeleXA] 10 mg PO HS 10/30/17 09/07/20 ARIPiprazole [Abilify] 5 mg PO HS 09/07/20 09/07/20 Aviane 0.1-0.02 Tablet 1 tab PO HS 09/07/20 09/07/20 busPIRone HCl [Buspar] 5 mg PO BID 09/07/20 09/07/20 lamoTRIgine [LaMICtal] 150 mg PO HS 09/07/20 09/07/20 Allergies Allergy/AdvReac Type Severity Reaction Status Date / Time No Known Allergies Allergy Verified 09/07/20 22:10 Review of Systems ROS Statement: Those systems with pertinent positive or pertinent negative responses have been documented in the HPI. ROS Other: All systems not noted in ROS Statement are negative. Past Medical History Past Medical History: No Reported History Additional Past Medical History / Comment(s): OCD, borderline personality disorder. History of Any Multi-Drug Resistant Organisms: None Reported Past Surgical History: Section Additional Past Surgical History / Comment(s): I&D of cyst to buttocks Past Anesthesia/Blood Transfusion Reactions: No Reported Reaction Past Psychological History: Anxiety, Bipolar, PTSD Smoking Status: Current every day smoker Past Alcohol Use History: Occasional Past Drug Use History: Marijuana General Exam Limitations: no limitations Course Vital Signs 09/07/20 20:54 Temperature 98.6 F Pulse Rate 106 H Respiratory 18 Rate Blood Pressure 106/70 O2 Sat by Pulse 98 Oximetry Medical Decision Making - Lab Data Lab Results 09/07/20 09/07/20 Range/Units 21:23 21:31 Urine HCG, Qual Not Detected (Not Detectd) Urine Opiates Screen Not Detected (NotDetected) Ur Oxycodone Screen Not Detected (NotDetected) Urine Methadone Screen Not Detected (NotDetected) Ur Propoxyphene Screen Not Detected (NotDetected) Ur Barbiturates Screen Not Detected (NotDetected) U Tricyclic Antidepress Not Detected (NotDetected) Ur Phencyclidine Scrn Not Detected (NotDetected) Ur Amphetamines Screen Detected H (NotDetected) U Methamphetamines Scrn Not Detected (NotDetected) U Benzodiazepines Scrn Not Detected (NotDetected) Urine Cocaine Screen Not Detected (NotDetected) U Marijuana (THC) Screen Detected H (NotDetected) Disposition Clinical Impression: Suicidal ideation Disposition: ADMITTED IP TO THIS [facility] Condition: Fair Referrals: Randi Montgomery MD [Primary Care Provider] - 1-2 days Decision Time: 22:47
[2020-09-07 21:46] LABS: Amphetamine Screen,Urine Detected (NotDetected); Barbiturate Screen,Urine Not Detected (NotDetected); Benzodiazepines Screen,Urine Not Detected (NotDetected); Cocaine Screen,Urine Not Detected (NotDetected); Methadone Screen, Urine Not Detected (NotDetected); Opiate Screen,Urine Not Detected (NotDetected); Oxycodone Screen, Urine Not Detected (NotDetected); Phencyclidine Screen,Urine Not Detected (NotDetected); Tricyclic Antidepressant,Urine Not Detected (NotDetected); Urn Cannabinoid Scrn Detected (NotDetected)
[2020-09-07] MEDS ORDERED: LORazepam 1 MG TAB PO PRN (23:25)
[2020-09-07] MEDS ORDERED: MAGNESIUM HYDROXIDE 2,400 MG/10 ML CUP PO PRN (23:25)
[2020-09-07] MEDS ORDERED: MAG HYDROX/AL HYDROX/SIMETH 30 ML CUP PO PRN (23:25)
[2020-09-07] MEDS ORDERED: LORazepam 2 MG/ML INJ IM PRN (23:27)
[2020-09-07] MEDS ORDERED: CITALOPRAM HYDROBROMIDE 10 MG TAB PO SCH (23:30)
[2020-09-08] MEDS ORDERED: ZIPRASIDONE 20 MG VIAL IM PRN
[2020-09-08] MEDS: busPIRone HCl 5 MG TAB PO SCH ×2 (00:38→09:19)
[2020-09-08] MEDS: ARIPiprazole 5 MG TAB PO SCH ×2 (00:38→20:14)
[2020-09-08] MEDS: lamoTRIgine 100 MG TAB PO SCH ×2 (00:44→20:14)
[2020-09-08] MEDS: AVIANE PO SCH ×2 (01:23→21:26)
[2020-09-08] MEDS: NICOTINE 14MG/24HR PATCH TRANSDERM SCH ×2 (01:24→09:19)
[2020-09-08 02:21] LABS: Appearance,Urine Cloudy (Clear); Bilirubin,Urine Negative (Negative); Blood,Urine Trace (Negative); Color,Urine Yellow; Glucose,Urine (UA) Negative (Negative); Ketones,Urine Negative (Negative); Leukocyte Esterase,Urine Moderate (Negative); Mucus,Urine Rare /hpf; Nitrite,Urine Negative (Negative); PH, Urine 6.5 (5.0-8.0); Protein,Urine Negative (Negative); RBC,Urine 3 /hpf (0-5); Specific Gravity,Urine 1.027 (1.001-1.035); Squamous Epithelial Cell,Urine 11 /hpf (0-4); Urobilinogen,Urine <2.0 mg/dL (<2.0); WBC,Urine 10 /hpf (0-5)
--- NOTE | 2020-09-08 03:59 | P.CONS ---
History of Present Illness - Reason for Consult Consult date: 09/08/20 - History of Present Illness Patient is a 80-year-old female with a PMH of depression who presented to the emergency room with complaints of depressive thoughts and suicidal ideation. The patient reports that she was planning on overdosing on many of her home medications reviewed. Instead, the patient decided to come to the emergency room. She reported continued feelings of depression along with PTSD. She denied any additional complaints however. She denied fever, chills, cough, chest pain, shortness of breath, nausea, vomiting, abdominal pain. Review of Systems Pertinent positives and negatives as discussed in HPI, a complete review of systems was performed and all other systems are negative. Past Medical History Past Medical History: No Reported History Additional Past Medical History / Comment(s): OCD, borderline personality disorder. History of Any Multi-Drug Resistant Organisms: None Reported Past Surgical History: Section Additional Past Surgical History / Comment(s): I&D of cyst to buttocks Past Anesthesia/Blood Transfusion Reactions: No Reported Reaction Past Psychological History: Anxiety, Bipolar, PTSD Smoking Status: Current every day smoker Past Alcohol Use History: Occasional Past Drug Use History: Marijuana Medications and Allergies Home Medications Medication Instructions Recorded Confirmed Type Citalopram Hydrobromide [CeleXA] 10 mg PO HS 10/30/17 09/07/20 History ARIPiprazole [Abilify] 5 mg PO HS 09/07/20 09/07/20 History Aviane 0.1-0.02 Tablet 1 tab PO HS 09/07/20 09/07/20 History busPIRone HCl [Buspar] 5 mg PO BID 09/07/20 09/07/20 History lamoTRIgine [LaMICtal] 150 mg PO HS 09/07/20 09/07/20 History Allergies Allergy/AdvReac Type Severity Reaction Status Date / Time No Known Allergies Allergy Verified 09/08/20 01:53 Physical Exam Vitals: Vital Signs Temp Pulse Pulse Resp BP BP Pulse Ox 09/07/20 23:55 97.3 F L 90 18 138/67 96 09/07/20 23:15 98.6 F 85 16 115/76 98 09/07/20 20:54 98.6 F 106 H 18 106/70 98 Intake and Output 09/07/20 09/07/20 09/08/20 14:59 22:59 06:59 Other: Weight 108.862 kg 108.862 kg General: non toxic, no distress, appears at stated age, morbidly obese Derm: no unusual rashes/lesions no unusual ecchymoses, warm, dry Head: atraumatic, normocephalic, symmetric Eyes: EOMI, no lid lag, anicteric sclera, pupils equal round reactive to light ENT: Nose and ears atraumatic, no thrush, no pharyngeal erythema Neck: No thyromegaly, no cervical lymphadenopathy, trachea midline, supple Mouth: no lip lesion, mucus membranes moist Cardiovascular: S1S2 reg, no murmur, positive posterior tibial pulse bilateral, no edema, capillary refill less than 2 seconds Lungs: CTA bilateral, no rhonchi, no rales , no accessory muscle use Abdominal: soft, nontender to palpation, no guarding, no appreciable organomegaly, normal bowel sounds Ext: no gross muscle atrophy, muscle strength 5 out of 5 in all 4 extremities grossly, no contractures, Neuro: CN II-XI grossly intact, light touch intact all 4 extremities, finger to nose within normal limits, Psych: Alert, oriented, depressed affect Results Labs: Abnormal Lab Results - Last 24 Hours (Table) 09/07/20 09/07/20 Range/Units 21:20 21:31 Urine Appearance Cloudy H (Clear) Urine Blood Trace H (Negative) Ur Leukocyte Esterase Moderate H (Negative) Urine WBC 10 H (0-5) /hpf Ur Squamous Epith Cells 11 H (0-4) /hpf Urine Mucus Rare H (None) /hpf Ur Amphetamines Screen Detected H (NotDetected) U Marijuana (THC) Screen Detected H (NotDetected) Assessment and Plan Plan: Abnormal UA -Patient denying urinary complaints -Likely colonization -Hold off on antibiotics at this time Depression and suicidal ideation -As per psychiatry Thank you for allowing us to participate in the care of this patient. We will follow peripherally. Do not hesitate to contact us with questions. Someone can be reached from the [facility] hospitalist group at all hours of the day at [phone].
[2020-09-08] MEDS: ACETAMINOPHEN TAB 325 MG TAB PO PRN (09:19)
[2020-09-08 09:29] LABS: Basophils % (A) 0 %; Eosinophils # (A) 0.2 k/uL (0-0.7); Eosinophils % (A) 2 %; HCT 47.7 % (34.0-46.0); HGB 15.2 gm/dL (11.4-16.0); Lymphocytes # (A) 2.1 k/uL (1.0-4.8); Lymphocytes % (A) 23 %; MCH 29.5 pg (25.0-35.0); MCHC 31.9 g/dL (31.0-37.0); MCV 92.4 fL (80.0-100.0); Mean Platelet Volume 6.4; Monocytes # (A) 0.5 k/uL (0-1.0); Monocytes % (A) 5 %; Neutrophils # (A) 6.3 k/uL (1.3-7.7); Neutrophils % (A) 69 %; Platelet Count 261 k/uL (150-450); RBC 5.16 m/uL (3.80-5.40); RDW 13.5 % (11.5-15.5); WBC 9.1 k/uL (3.8-10.6)
[2020-09-08 09:39] LABS: ALT 34 U/L (4-34); AST 36 U/L (14-36); African American GFR (CKD) >90 (>60 ml/min/1.73 sqM); Albumin 4.4 g/dL (3.5-5.0); Alkaline Phosphatase 71 U/L (38-126); Anion Gap 7 mmol/L; Blood Urea Nitrogen 14 mg/dL (7-17); Calcium 8.9 mg/dL (8.4-10.2); Carbon Dioxide 27 mmol/L (22-30); Chloride 103 mmol/L (98-107); Cholesterol 167 mg/dL (<200); Glucose 103 mg/dL (74-99); HDL Cholesterol 70 mg/dL (40-60); LDL Cholesterol,Calculated 71 mg/dL (0-99); Non-African American GFR(CKD) >90 (>60 ml/min/1.73 sqM); Potassium 4.4 mmol/L (3.5-5.1); Sodium 137 mmol/L (137-145); Total Bilirubin 0.6 mg/dL (0.2-1.3); Total Protein 7.7 g/dL (6.3-8.2); Triglycerides 130 mg/dL (<150)
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
--- NOTE | 2020-09-08 17:27 | P.PN ---
Progress Note - Text Progress Note Date: 09/08/20 Please cancel consult for me patient was already seen by [facility] physician
[2020-09-08] MEDS: busPIRone HCl 10 MG TAB PO SCH ×2 (17:48→20:14)
[2020-09-08] MEDS: CITALOPRAM HYDROBROMIDE 20 MG TAB PO SCH (20:14)
[2020-09-08] MEDS ORDERED: MELATONIN 5 MG TABLET PO SCH (21:00)
[2020-09-09] MEDS: NICOTINE 14MG/24HR PATCH TRANSDERM SCH (08:33)
[2020-09-09] MEDS: busPIRone HCl 10 MG TAB PO SCH (08:33)
--- NOTE | 2020-09-09 10:16 | P.PN ---
Progress Note - Text Progress Note Date: 09/09/20 Interval History: Patient was seen sitting in a group this morning and was directable and agreea ble to speak with blog writer in the office. Patient appears to have mild improvement hygiene and grooming today. She claims that she is feeling upset today because one of the new patients on the unit was disrupting group and needed to be kicked out. Patient states that this event was making her anxious as well. She states that other than that her mood has been improving on the unit and thanked blog writer for her medications. She states that she is also speaking to her who claims that he will be sending his daughter away to live at a friend's house for 2 weeks so that they can figure out further living arrangements and a plan going forward. She states that they will also be looking into doing family therapy. She states that she does not feel suicidal today. He claims that she feels "a little groggy today". She claims that she is able to sleep throughout the night. At this time patient denies any suicidal or homical ideations, intent or plan. Patient denies any auditory, visual hallucinations and denies any paranoia or delusions. Patient denies any side effects from the medications and has been compliant with meds. Mental Status Exam: General Appearance: Patient appears to be stated age is obese, alert, directable, and attempts to cooperate. Patient appears to have poor hygiene and grooming. Several tattoos. Behavior: Patient is seated without any agitated behavior. Constricted and flat affect. Speech: Patient's speech is fluent and nonpressured. Soft tone of voice Mood/Affect: Patient reports their mood is improving mildly, affect is congruent Suicidality/Homicidality: Patient denies having any homicidal ideation intent or plan. Denies any suicidal thoughts today intent or plan. Perceptions: Patient denies any visual hallucinations and denies any auditory hallucinations Though content/process: There is no evidence of any delusional thought content and thought process is linear and goal-directed. Focused on her triggers and other patients on the unit. More future oriented today. Memory and concentration: AOX3, grossly intact for the purposes of this session Judgment and insight: poor, improving mildly Assessment Major depressive disorder, recurrent, severe, without psychotic features Anxiety disorder unspecified Borderline personality disorder Cannabis use disorder Nicotine dependence Plan: -Patient continues to meet criteria for inpatient psychiatric admission for symptom stabilization and safety. Patient has signed adult voluntary form and medication consent and was placed in patient's chart. -Medications: Continue with Celexa 20 mg daily at bedtime for mood/anxiety. Continue Lamictal 150 mg nightly for mood stabilization/depression. Continue with Abilify 5 mg daily at bedtime for mood adjunct/mood stabilization. Increase BuSpar to 15 mg 3 times a day for anxiety. Decreased melatonin to 3 mg daily at bedtime for insomnia. -When necessary Atart and Demarcodon for agitation/aggression. -NRT - nicotine patch -SW on board for discharge planning. Encouraged the patient to participate in milieu. industrial services worker to gather further collateral information and also conduct family meeting prior to patient's discharge to ensure safety and address concerns in the home. The patient is well overnight and a safe discharge plan is made and patient will likely be discharged tomorrow back home.
[2020-09-09] MEDS: busPIRone HCl 5 MG TAB PO SCH ×2 (16:07→20:09)
[2020-09-09] MEDS: ARIPiprazole 5 MG TAB PO SCH (20:08)
[2020-09-09] MEDS: lamoTRIgine 100 MG TAB PO SCH (20:09)
[2020-09-09] MEDS: CITALOPRAM HYDROBROMIDE 20 MG TAB PO SCH (20:09)
[2020-09-09] MEDS: AVIANE PO SCH (20:09)
[2020-09-09] MEDS ORDERED: MELATONIN 3 MG TABLET PO SCH (21:00)
[2020-09-10 06:55] VITALS: BP 123/63; PULSE 102; RESP 17; TEMP 98.4
[2020-09-10] MEDS: ACETAMINOPHEN TAB 325 MG TAB PO PRN (08:21)
[2020-09-10] MEDS: NICOTINE 14MG/24HR PATCH TRANSDERM SCH (08:22)
[2020-09-10] MEDS: busPIRone HCl 5 MG TAB PO SCH ×2 (08:22→15:44)
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
== END 2020-09-10 16:29 | disposition home or self-care (01) | DRG 885 ==
LOC: EC 20:52 → 3MHU 22:58
PROVIDERS: ADMIT Psychiatry & Neurology Psychiatry; ATTEND Psychiatry & Neurology Psychiatry
DX: F33.2 Major depressive disorder, recurrent severe without psychotic features (principal); R45.851 Suicidal ideations; F12.10 Cannabis abuse, uncomplicated; F17.210 Nicotine dependence, cigarettes, uncomplicated; F42.9 Obsessive-compulsive disorder, unspecified; F43.10 Post-traumatic stress disorder, unspecified; F60.3 Borderline personality disorder; G47.00 Insomnia, unspecified; F41.9 Anxiety disorder, unspecified; R82.90 Unspecified abnormal findings in urine; Z79.899 Other long term (current) drug therapy; Z81.8 Family history of other mental and behavioral disorders
CPT/HCPCS: 80053; 80061; 80306; 81001; 81025; 82075; 83036; 84443; 85025; 99285

== ENCOUNTER 2020-10-06 17:03 | Emergency (ER) | payer OTHER ==
[2020-10-06 17:16] VITALS: BP 129/84; PULSE 106; RESP 18; TEMP 98.4
[2020-10-06] MEDS ORDERED: MORPHINE SULFATE 4 MG/ML SYRINGE IM STA (17:42)
[2020-10-06] MEDS ORDERED: KETOROLAC 15 MG/ML 1 ML VIAL IM STA (17:42)
--- NOTE | 2020-10-06 17:45 | ED ---
General Adult HPI - General Chief complaint: Back Pain/Injury Stated complaint: back pain Time Seen by Provider: 10/06/20 17:21 Source: patient, family, RN notes reviewed Mode of arrival: wheelchair Limitations: no limitations - History of Present Illness Initial comments: Patient is a pleasant 30-year-old female presenting to the emergency Department with complaints of low back pain. Onset of symptoms was chronic. Patient was bending over today around 11:00 and had some increased pain. Pain now radiates towards right leg. No tendons retention of bowel or bladder. No leg weakness. Patient does have history of 2 previous lumbar punctures which she feels is related to her chronic back pain. Patient does not see a doctor or has had previous studies regarding her back problems. - Related Data Home Medications Medication Instructions Recorded Confirmed Aviane 0.1-0.02 Tablet 1 tab PO HS 09/07/20 09/07/20 Previous Rx's Medication Instructions Recorded ARIPiprazole [Abilify] 5 mg PO HS 30 Days tab 09/10/20 Acetaminophen Tab [Tylenol] 650 mg PO Q4HR PRN tab 09/10/20 Citalopram Hydrobromide [CeleXA] 20 mg PO HS 30 Days tab 09/10/20 Melatonin 3 mg PO HS tablet 09/10/20 Nicotine 14Mg/24Hr Patch [Habitrol] 1 patch TRANSDERM DAILY 14 Days 09/10/20 patch busPIRone HCL [Buspar] 15 mg PO TID 30 Days tab 09/10/20 lamoTRIgine [LaMICtal] 150 mg PO HS 30 Days tab 09/10/20 Cyclobenzaprine [Flexeril] 10 mg PO TID PRN #12 tablet 10/06/20 Ibuprofen [Motrin] 600 mg PO Q6HR PRN #20 tab 10/06/20 Allergies Allergy/AdvReac Type Severity Reaction Status Date / Time No Known Allergies Allergy Verified 10/06/20 17:16 Review of Systems ROS Statement: Those systems with pertinent positive or pertinent negative responses have been documented in the HPI. ROS Other: All systems not noted in ROS Statement are negative. Constitutional: Denies: fever Eyes: Denies: eye pain ENT: Denies: ear pain Respiratory: Denies: cough Cardiovascular: Denies: chest pain Endocrine: Denies: fatigue Gastrointestinal: Denies: abdominal pain Genitourinary: Denies: dysuria Musculoskeletal: Reports: as per HPI, back pain Skin: Denies: rash Neurological: Denies: weakness Past Medical History Past Medical History: No Reported History Additional Past Medical History / Comment(s): OCD, borderline personality disorder. History of Any Multi-Drug Resistant Organisms: None Reported Past Surgical History: Section Additional Past Surgical History / Comment(s): I&D of cyst to buttocks Past Anesthesia/Blood Transfusion Reactions: No Reported Reaction Past Psychological History: Anxiety, Bipolar, PTSD Smoking Status: Current every day smoker Past Alcohol Use History: Occasional Past Drug Use History: Marijuana General Exam Limitations: no limitations General appearance: alert, in no apparent distress Head exam: Present: normocephalic Eye exam: Present: normal appearance Neck exam: Present: normal inspection Respiratory exam: Present: normal lung sounds bilaterally Cardiovascular Exam: Present: regular rate, normal rhythm Expanded Peripheral pulses: 2+: Posterior Tibialis (R), Posterior Tibialis (L), Dorsalis Pedis (R), Dorsalis Pedis (L) GI/Abdominal exam: Present: soft. Absent: distended, tenderness, pulsatile mass Extremities exam: Present: normal inspection, other (Right leg raise positive on the right around 30) Back exam: Present: vertebral tenderness (Mild tenderness lower lumbar region) Neurological exam: Present: alert. Absent: motor sensory deficit Expanded Sensory exam: Lower Extremity Light Touch: Normal Motor strength exam: RLE: 5, LLE: 5 Psychiatric exam: Present: normal affect, normal mood Skin exam: Present: normal color Course Vital Signs 10/06/20 17:12 Temperature 98.4 F Pulse Rate 106 H Respiratory 18 Rate Blood Pressure 129/84 O2 Sat by Pulse 99 Oximetry - Reevaluation(s) Reevaluation #1: 10/06/20 17:42 Patient is offered x-rays however refuses Disposition Clinical Impression: Low back pain Disposition: HOME SELF-CARE Condition: Stable Instructions (If sedation given, give patient instructions): Acute Low Back Pain (ED) Additional Instructions: Prescription sent to your pharmacy. [facility]. Please follow-up with primary care physician in the next day or 2 for recheck. Return for fever, uncontrolled pain, weakness or loss of sensation, loss of control of bowel or bladder, worse geraldine symptoms or other concerns. Consider physical therapy. Prescriptions: Cyclobenzaprine [Flexeril] 10 mg PO TID PRN #12 tablet PRN Reason: Pain Ibuprofen [Motrin] 600 mg PO Q6HR PRN #20 tab PRN Reason: Pain Is patient prescribed a controlled substance at d/c from ED?: No Referrals: Randi Montgomery MD [Primary Care Provider] - 1-2 days Time of Disposition: 17:45
== END 2020-10-06 18:15 | disposition home or self-care (01) ==
LOC: EC 17:03
DX: M54.5 Low back pain (principal); F17.200 Nicotine dependence, unspecified, uncomplicated; X50.1XXA Overexertion from prolonged static or awkward postures, initial encounter
CPT/HCPCS: 99283; 96372 ×2; J2270; J1885

== ENCOUNTER 2021-12-03 09:51 | Inpatient (IN) | payer BC, MEDICAID ==
--- NOTE | 2021-12-03 10:56 | ED ---
General Adult HPI - General Chief complaint: Psychiatric Symptoms Stated complaint: Mental Health Time Seen by Provider: 12/03/21 10:07 Source: patient Mode of arrival: ambulatory Limitations: no limitations - History of Present Illness Initial comments: 31-year-old female presents to the emergency room for suicidal thoughts. Patient states she always has some suicidal thoughts with a worsen significantly about a week ago. Patient states she felt like calling 911 yesterday because she wanted to drive into traffic. Patient also states that last night she tried to cut herself but the knife was to go. Patient is tearful.Patient has no other complaints at this time including shortness of breath, chest pain, abdominal pain, nausea or vomiting, headache, or visual changes. - Related Data Home Medications Medication Instructions Recorded Confirmed Aviane 0.1-0.02 Tablet 1 tab PO HS 09/07/20 12/03/21 ARIPiprazole [Abilify] 20 mg PO HS 12/03/21 12/03/21 Cyclobenzaprine [Flexeril] 10 mg PO DAILY PRN 12/03/21 12/03/21 Ergocalciferol [Vitamin D2 (1250 1,250 mcg PO WE 12/03/21 12/03/21 Mcg = 54760 Iu)] busPIRone HCL 15 mg PO TID 12/03/21 12/03/21 lamoTRIgine [LaMICtal] 200 mg PO HS 12/03/21 12/03/21 traZODone HCL [Desyrel] 100 mg PO HS 12/03/21 12/03/21 Allergies Allergy/AdvReac Type Severity Reaction Status Date / Time No Known Allergies Allergy Verified 12/03/21 11:06 Review of Systems ROS Statement: Those systems with pertinent positive or pertinent negative responses have been documented in the HPI. ROS Other: All systems not noted in ROS Statement are negative. Past Medical History Past Medical History: No Reported History Additional Past Medical History / Comment(s): OCD, borderline personality disorder. History of Any Multi-Drug Resistant Organisms: None Reported Past Surgical History: Section Additional Past Surgical History / Comment(s): I&D of cyst to buttocks Past Anesthesia/Blood Transfusion Reactions: No Reported Reaction Past Psychological History: Anxiety, Bipolar, PTSD Smoking Status: Current every day smoker Past Alcohol Use History: Occasional Past Drug Use History: Marijuana General Exam Limitations: no limitations General appearance: alert, in no apparent distress Head exam: Present: atraumatic Eye exam: Present: normal appearance, PERRL, EOMI. Absent: scleral icterus, conjunctival injection ENT exam: Present: normal exam, mucous membranes moist Neck exam: Present: normal inspection, full ROM. Absent: tenderness Respiratory exam: Present: normal lung sounds bilaterally. Absent: respiratory distress, wheezes Cardiovascular Exam: Present: regular rate, normal rhythm, normal heart sounds Course Vital Signs 12/03/21 09:53 Temperature 97.9 F Pulse Rate 102 H Respiratory 22 Rate Blood Pressure 143/71 O2 Sat by Pulse 100 Oximetry Medical Decision Making - Medical Decision Making Vitals are stable. Patient is anxious and crying. Patient was evaluated by EPS. Will be admitted for suicidal ideation. - Lab Data Lab Results 12/03/21 12/03/21 Range/Units 10:10 15:10 Urine Opiates Screen Not Detected (NotDetected) Ur Oxycodone Screen Detected H (NotDetected) Urine Methadone Screen Not Detected (NotDetected) Ur Propoxyphene Screen Not Detected (NotDetected) Ur Barbiturates Screen Not Detected (NotDetected) U Tricyclic Antidepress Not Detected (NotDetected) Ur Phencyclidine Scrn Not Detected (NotDetected) Ur Amphetamines Screen Not Detected (NotDetected) U Methamphetamines Scrn Not Detected (NotDetected) U Benzodiazepines Scrn Not Detected (NotDetected) Urine Cocaine Screen Not Detected (NotDetected) U Marijuana (THC) Screen Detected H (NotDetected) Coronavirus (PCR) Not Detected (Not Detectd) Disposition Clinical Impression: Suicidal thoughts Disposition: TRANSFER TO PSYCH HOSP/UNIT Is patient prescribed a controlled substance at d/c from ED?: No Referrals: Oenl Diggs MD [Primary Care Provider] - 1-2 days Time of Disposition: 15:44
[2021-12-03 11:45] LABS: Urn Cannabinoid Scrn Detected (NotDetected)
[2021-12-03 11:46] LABS: Amphetamine Screen,Urine Not Detected (NotDetected); Barbiturate Screen,Urine Not Detected (NotDetected); Benzodiazepines Screen,Urine Not Detected (NotDetected); Cocaine Screen,Urine Not Detected (NotDetected); Methadone Screen, Urine Not Detected (NotDetected); Opiate Screen,Urine Not Detected (NotDetected); Oxycodone Screen, Urine Detected (NotDetected); Phencyclidine Screen,Urine Not Detected (NotDetected); Tricyclic Antidepressant,Urine Not Detected (NotDetected)
[2021-12-03] MEDS ORDERED: MAGNESIUM HYDROXIDE 2,400 MG/10 ML CUP PO PRN (15:52)
[2021-12-03] MEDS ORDERED: ACETAMINOPHEN TAB 325 MG TAB PO PRN (15:52)
[2021-12-03] MEDS ORDERED: LORazepam 1 MG TAB PO PRN (15:52)
[2021-12-03] MEDS ORDERED: MAG HYDROX/AL HYDROX/SIMETH 30 ML CUP PO PRN (15:52)
[2021-12-03] MEDS ORDERED: HALOPERIDOL LACTATE 5 MG/ML 1 ML VIAL IM PRN (15:52)
[2021-12-03] MEDS ORDERED: LORazepam 2 MG/ML INJ IM PRN (15:58)
[2021-12-03] MEDS: busPIRone HCl 5 MG TAB PO SCH ×2 (17:09→20:55)
[2021-12-03] MEDS: NICOTINE 14MG/24HR PATCH TRANSDERM SCH (17:13)
[2021-12-03 18:21] LABS: Appearance,Urine Cloudy (Clear); Bacteria,Urine Occasional /hpf; Bilirubin,Urine Negative (Negative); Blood,Urine Large (Negative); Color,Urine Light Red; Glucose,Urine (UA) Negative (Negative); Ketones,Urine Negative (Negative); Leukocyte Esterase,Urine Moderate (Negative); Nitrite,Urine Negative (Negative); Protein,Urine 1+ (Negative); RBC,Urine >182 /hpf (0-5); Specific Gravity,Urine 1.028 (1.001-1.035); Squamous Epithelial Cell,Urine 6 /hpf (0-4); Urobilinogen,Urine <2.0 mg/dL (<2.0); WBC,Urine 33 /hpf (0-5)
[2021-12-03] MEDS: lamoTRIgine 100 MG TAB PO SCH (20:54)
[2021-12-03] MEDS: traZODone HCL 100 MG TAB PO SCH (20:54)
[2021-12-03] MEDS: CYCLOBENZAPRINE 10 MG TAB PO PRN (20:55)
[2021-12-04] MEDS: busPIRone HCl 5 MG TAB PO SCH ×2 (08:12→15:42)
[2021-12-04] MEDS: NICOTINE 14MG/24HR PATCH TRANSDERM SCH (08:13)
[2021-12-04] MEDS: CYCLOBENZAPRINE 10 MG TAB PO PRN (08:15)
[2021-12-04] MEDS ORDERED: NICOTINE 14MG/24HR PATCH TRANSDERM SCH (09:00)
[2021-12-04] MEDS: IBUPROFEN 400 MG TAB PO SCH ×2 (17:28→23:39)
[2021-12-04] MEDS: LURASIDONE 80 MG TAB PO SCH (17:31)
--- NOTE | 2021-12-04 17:41 | P.CONS ---
History of Present Illness - Reason for Consult Consult date: 12/04/21 Medical management Requesting physician: Quinton oL - Chief Complaint Depressed - History of Present Illness This is a 31-year-old patient who follows Dr. Diggs. She presented to ER for suicidal thoughts. She stated down that she's been having suicidal thoughts for some time became more severe to weak ago. She felt like driving to the traffic and decided to call 911. She also felt like cutting herself with a knife. She does live with her in a girlfriend. She drinks about 3 or 4 times a week at least 6 whiskey and rum drinks. Also smokes 2 marijuana joints a day. Also smokes close to a pack a day. In the last 1 year she is put on over 40-50 pounds. Sometimes she eats too much or sometimes a little.. Does not sleep well. No fever no chills. Review of systems: GEN.: Weight gain EYES: None HEENT: None NECK: None RESPIRATORY: Occasional wheezing CARDIOVASCULAR: None GASTROINTESTINAL: Reflex GENITOURINARY: None MUSCULOSKELETAL: None LYMPHATICS: None HEMATOLOGICAL: None PSYCHIATRY: Anxious depressed NEUROLOGICAL: Poor sleep] Past medical history to include: OCD, borderline personality disorder, PTSD Social history: Smokes about 6 drinks 3-4 times a week that includes whiskey and rum. Marijuana about 2 joints a day. Smokes about 15 cigarettes to a pack a day. Lives with her and girlfriend and a child. 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 Family history: Reviewed, noncontributory to presentation Physical examination: VITAL SIGNS: 97.1, 114, 20, 122/55, 99% room air GENERAL: BMI 56.1, sitting up in chair, somewhat depressed appearing. Tattoos. EYES: Pupils equal. Conjunctiva normal. HEENT: External appearance of nose and ears normal, oral cavity grossly normal. NECK: JVD not raised; masses not palpable. HEART: First and second heart sounds are normal; no edema. LUNGS: Respiratory rate normal; mild wheezing. ABDOMEN: Soft, nontender, liver spleen not palpable, no masses palpable. PSYCH: Alert and oriented x3; mood and affect a bit lowl. MUSCULOSKELETAL:No Clubbing/cyanosis;muscles-grossly intact NEUROLOGICAL: Cranial nerves grossly intact; no facial asymmetry, power and sensation grossly intact. LYMPHATICS: No lymph nodes palpable in the axilla and neck INVESTIGATIONS, reviewed in the clinical context: UA positive for blood. Leukoesterase. RBC more than 22. Urine hCG: Not detected Urine drug screen positive for oxycodone, marijuana Coronavirus [PCR]: Not detected Assessment and plan: -Morbid obesity. BMI 56.1. Patient was put on over 40 pounds in the last several months. Patient was counseled about her diet. Will put on 1800-calorie diet. Dietitian to see the patient. -Chronic nicotine dependence, cigarette smoking Nicotine 21 mg patch. Advised against the same- -Recreational marijuana use Advised against the same -Alcohol use disorder. Watch for withdrawal symptoms. -GERD Pepcid 20 mg twice a day -Acute insomnia, from mental disorders Patient should do better with antidepressants -Major depression with acute episode Patient has been currently prescribed by psychiatry on BuSpar, Lamictal, Lipitor, Desyrel. Patient counseled against alcohol, smoking, marijuana. Nicotine patch. Pepcid. Consult dietitian. 1800-calorie diet. Follow-up with Giovanny Winn upon discharge. Thank you Dr. Lo Past Medical History Past Medical History: No Reported History Additional Past Medical History / Comment(s): OCD, borderline personality disorder. History of Any Multi-Drug Resistant Organisms: None Reported Past Surgical History: Section Additional Past Surgical History / Comment(s): I&D of cyst to buttocks Past Anesthesia/Blood Transfusion Reactions: No Reported Reaction Past Psychological History: Anxiety, Bipolar, PTSD Smoking Status: Current every day smoker Past Alcohol Use History: Occasional Past Drug Use History: Marijuana Medications and Allergies Home Medications Medication Instructions Recorded Confirmed Type Aviane 0.1-0.02 Tablet 1 tab PO HS 09/07/20 12/03/21 History ARIPiprazole [Abilify] 20 mg PO HS 12/03/21 12/03/21 History Cyclobenzaprine [Flexeril] 10 mg PO DAILY PRN 12/03/21 12/03/21 History Ergocalciferol [Vitamin D2 (1250 1,250 mcg PO WE 12/03/21 12/03/21 History Mcg = 59425 Iu)] busPIRone HCL 15 mg PO TID 12/03/21 12/03/21 History lamoTRIgine [LaMICtal] 200 mg PO HS 12/03/21 12/03/21 History traZODone HCL [Desyrel] 100 mg PO HS 12/03/21 12/03/21 History Allergies Allergy/AdvReac Type Severity Reaction Status Date / Time No Known Allergies Allergy Verified 12/03/21 11:06 Physical Exam Vitals: Vital Signs Temp Pulse Resp BP Pulse Ox 12/04/21 08:00 97.1 F L 114 H 20 122/55 12/03/21 16:53 97.8 F 101 H 18 127/63 99 Intake and Output 12/03/21 12/04/21 12/04/21 22:59 06:59 14:59 Other: Weight 125.9 kg Results Labs: Abnormal Lab Results - Last 24 Hours (Table) 12/03/21 Range/Units 18:03 Urine Appearance Cloudy H (Clear) Urine Protein 1+ H (Negative) Urine Blood Large H (Negative) Ur Leukocyte Esterase Moderate H (Negative) Urine RBC >182 H (0-5) /hpf Urine WBC 33 H (0-5) /hpf Ur Squamous Epith Cells 6 H (0-4) /hpf Urine Bacteria Occasional H (None) /hpf
--- NOTE | 2021-12-04 17:49 | HP ---
HISTORY AND PHYSICAL DATE OF SERVICE: 12/04/2021 IDENTIFYING DATA: The patient is a 31-year-old female. She lives with her and significant other. She presented to the ED for evaluation. CHIEF COMPLAINT: The patient was depressed and having suicide thoughts. She said she had to pull her car over because she was afraid she would drive into traffic. HISTORY OF PRESENT ILLNESS: Patient has had long-term problems with depression. She said that she has been diagnosed with bipolar disorder, borderline personality disorder, OCD and PTSD. She notes that she has had episodes of mood swings. She will get manic episodes where she has high energy. She may go on spending sprees. She will have decreased need for sleep. She will have racing thoughts. She said these episodes will last about one week and then she will drop into depression. She says that she barely has a "middle ground." She notes that in the last 2 months she has primarily been in depression and has not seen manic symptoms. It is noted that she has had one prior psychiatric hospitalization at this facility September 08, 2020. At that time she was diagnosed with major depression. Current medications that she has been on include Lamictal 200 mg a day, BuSpar 15 mg 3 times a day, Abilify 20 mg a day and trazodone 100 mg at bedtime. She said trazodone is a recent addition, though she has been on the other medications for quite a period of time. She is followed through [facility] and sees Dr. Cheung. She also notes that in the recent past she had been on Pristiq, which she took for about 4 months, though has stopped it because she was not getting any benefits from that. She notes that currently she has been sleeping poorly, she has loss of motivation, energy and interest. She says she has persistent thoughts of suicide and that just more recently suicide thoughts will get intense without any trigger. She says in the past some stress issue or another might set this off, though now things have worsened to the point where these thoughts just come on her. She notes that she does have what she describes as "occasional hallucinations" where she might hear her name or some noises, though it is nothing that is very persistent. She says she does not get any command hallucinations. She also has some visual perception issues with lights and shadows. She notes that there are times where she can get into delusional thinking when her depression gets bad, though otherwise is not identifying any thoughts in that direction. She notes that she has OCD symptoms which mainly are intrusive thoughts that can go over in her head repeatedly. She notes that she will have a few compulsive behaviors, such as the going through certain rituals or doing certain things 3 times repeatedly. She describes traumatic issues from her past, though she did not go into detail. She has chronic back pain and notes that pain and depression seem to aggravate one another. She is admitted for further evaluation. SUBSTANCE USE HISTORY: Patient has been taking opioid pain medications which she gets on the street because she does not have a prescription. She usually takes it about 2 times a week. She also smokes marijuana on a daily basis. She does not use other street drugs or alcohol. PAST MEDICAL HISTORY: Patient has obesity. She says that she has set up an appointment with a dietitian and also is setting up an appointment for evaluation for gastric bypass. She has chronic back pain. She has had two full-term pregnancies. FAMILY AND SOCIAL HISTORY: Patient currently lives with her and significant other girlfriend. Along with the three of them there are two children in the house, ages 16 and 7. 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 MENTAL STATUS EXAM: Patient was somewhat restless. She gave fairly good eye contact. She answered questions appropriately. Her thoughts were clear, coherent and goal-directed. She was not too spontaneous, though she was interactive. Her affect was anxious and somewhat constricted. She had a friendly manner. Her mood was depressed. She was significantly distressed. She reports some issues of hallucinations or intrusive thoughts. She acknowledged that she has had thoughts of harm that have been persistent and have intensified of late. She does have a past history of suicidality, with two past suicide attempts of cutting and overdose. On cognitive exam, the patient was oriented and alert. Recent and remote memory were intact. She could recall 3/3 objects in 4 minutes. She could spell "world" forward and backwards. Insight and judgment were fair, fund of knowledge average or somewhat above average. PHYSICAL EXAM: As per medical consultation. ASSESSMENT: This 31-year-old female is diagnosed with bipolar depression. In addition, she has other psychiatric issues, including persistent mood swings and pervasive thoughts of suicide. Strengths include [place] intelligence and moderate insight into some of her issues. Weakness includes substance use issues. DIAGNOSIS: 1. Bipolar affective disorder, depressed phase, with possible psychotic features. 2. OCD by history. 3. PTSD by history. 4. Substance dependence and acute substance withdrawal, including marijuana and opioids. 5. Obesity. 6. Chronic back pain. RECOMMENDATIONS: Patient will be admitted for comprehensive medical, psychiatric and psychosocial evaluation. We will engage the patient in individual and group therapeutic activities. I had an extensive discussion with the patient regarding treatment issues relating to her bipolar condition. At this point I will discontinue Abilify and start her on Latuda 80 mg a day. In addition, I will begin tapering her off of BuSpar, as it likely has little or no benefit, which the patient confirms. I will go down to 10 mg twice a day. She will continue Lamictal 200 mg a day. Lamictal does have indication to help reduce relapse, to bipolar sheldon primarily and to a lesser degree bipolar depression. Whether or not Lamictal should be a long-term medication for her remains to be seen, given that it has not shown much benefit. I discussed that there might be consideration for addition of lithium, which also has indications for bipolar sheldon and potentially may be appropriate for bipolar depression as well. I will continue trazodone 100 mg at bedtime. I had an extensive discussion with the patient regarding the need to be off of opioids and marijuana. We discussed that once she goes through a withdrawal period of 6 to 8 weeks off of opioids, there is a significant likelihood that her chronic pain issues will be lessened. In addition, being off of opioids will be of significant benefit in regard to stabilizing her mood disorder. The same is the case for her marijuana, which I also discussed. I reviewed medication issues with the patient, including indication, potential side effects and concerns related to metabolics and movement disorder issues as it relates to Latuda. We will focus on stabilization and discharge planning. MMALVARADOL / CELIAN: [id number] /
[2021-12-04] MEDS: busPIRone HCl 10 MG TAB PO SCH (20:48)
[2021-12-04] MEDS: traZODone HCL 100 MG TAB PO SCH (20:48)
[2021-12-04] MEDS: FAMOTIDINE 20 MG TAB PO SCH (20:48)
[2021-12-04] MEDS: lamoTRIgine 100 MG TAB PO SCH (20:48)
[2021-12-04] MEDS: NICOTINE 21MG/24HR PATCH TRANSDERM SCH (21:19)
[2021-12-05] MEDS: CYCLOBENZAPRINE 10 MG TAB PO PRN (06:07)
[2021-12-05] MEDS: NICOTINE 21MG/24HR PATCH TRANSDERM SCH (08:11)
[2021-12-05] MEDS: busPIRone HCl 10 MG TAB PO SCH ×2 (08:11→20:53)
[2021-12-05] MEDS: FAMOTIDINE 20 MG TAB PO SCH ×2 (08:11→20:52)
[2021-12-05] MEDS: IBUPROFEN 400 MG TAB PO SCH ×3 (08:12→20:53)
[2021-12-05] MEDS: LURASIDONE 80 MG TAB PO SCH (08:12)
[2021-12-05 08:28] LABS: Basophils % (A) 0 %; Eosinophils # (A) 0.2 k/uL (0-0.7); Eosinophils % (A) 3 %; HCT 45.6 % (34.0-46.0); HGB 14.8 gm/dL (11.4-16.0); Lymphocytes # (A) 1.8 k/uL (1.0-4.8); Lymphocytes % (A) 28 %; MCH 30.4 pg (25.0-35.0); MCHC 32.4 g/dL (31.0-37.0); MCV 93.8 fL (80.0-100.0); Monocytes # (A) 0.5 k/uL (0-1.0); Monocytes % (A) 8 %; Neutrophils # (A) 3.8 k/uL (1.3-7.7); Neutrophils % (A) 60 %; Platelet Count 302 k/uL (150-450); RBC 4.86 m/uL (3.80-5.40); RDW 13.7 % (11.5-15.5); WBC 6.4 k/uL (3.8-10.6)
[2021-12-05 08:37] LABS: ALT 40 U/L (4-34); AST 32 U/L (14-36); African American GFR (CKD) >90 (>60 ml/min/1.73 sqM); Albumin 4.1 g/dL (3.5-5.0); Alkaline Phosphatase 76 U/L (38-126); Anion Gap 7 mmol/L; Blood Urea Nitrogen 14 mg/dL (7-17); Calcium 9.1 mg/dL (8.4-10.2); Carbon Dioxide 25 mmol/L (22-30); Chloride 108 mmol/L (98-107); Glucose 101 mg/dL (74-99); Non-African American GFR(CKD) >90 (>60 ml/min/1.73 sqM); Potassium 4.3 mmol/L (3.5-5.1); Sodium 140 mmol/L (137-145); Total Bilirubin 0.6 mg/dL (0.2-1.3); Total Protein 7.4 g/dL (6.3-8.2)
--- NOTE | 2021-12-05 13:10 | PN ---
PROGRESS NOTE DATE OF SERVICE: 12/05/2021 CHIEF COMPLAINT: The patient was depressed and having suicide thoughts. She said she had to pull her car over because she was afraid she would drive into traffic. INTERVAL HISTORY: The patient has been doing fair. She had a quiet day yesterday. She comes out on the unit. She will interact with others. She tends to have a reserved manner. She notes that she had difficulty early in the night when she was trying to go to sleep. She said she felt lonely and was crying. She said the sense of loneliness is one of the biggest struggle she has. At home she said she had both her and partner who would support her and be around to keep her from feeling that way. Ultimately she was able to get to sleep and said she slept fair, though she woke on and off through the night. Today she has been up. She does attend groups and states that that is perhaps the most supportive thing she experiences here. She says that she has not had any problems with the start of Latuda, nor has she noted any difficulties with the reduction in BuSpar. Overall she tolerates her psychotropic medications. MENTAL STATUS: Patient sat with a little restlessness. She gave fairly good eye contact. She answered questions with brief responses. Her thoughts were clear. She was spontaneous and somewhat interactive. Her affect was anxious and somewhat constricted, her mood reserved. She seemed moderately distressed. There was no indication of thought disorder. She voiced no thoughts of harm. Cognition was clear. ASSESSMENT: I will continue the current diagnosis and treatment plan. I will continue psychotropic medications the same. She was started yesterday on Latuda in place of Abilify, which had not been helping. In addition she has mostly struggled with depression for the last two months relating to her bipolar disorder. As noted, Latuda has specific indication for bipolar depression. I reduced BuSpar in an effort to simplify medications, given that she did not seem to be benefitting from BuSpar. I would look to taper her off BuSpar altogether. The patient continues with significant anxiety and mood difficulties though does show some progress, mainly through supportive groups. We will focus on stabilization and discharge planning. MMODL / IJN: [id number] /
[2021-12-05 17:01] LABS: Chol/HDL Ratio 3.08 Ratio; LDL Cholesterol,Calculated 85.6 mg/dL (0.0-131.0)
[2021-12-05] MEDS: lamoTRIgine 100 MG TAB PO SCH (20:53)
[2021-12-05] MEDS: traZODone HCL 100 MG TAB PO SCH (20:53)
[2021-12-06] MEDS: busPIRone HCl 10 MG TAB PO SCH (08:19)
[2021-12-06] MEDS: FAMOTIDINE 20 MG TAB PO SCH ×2 (08:19→20:54)
[2021-12-06] MEDS: IBUPROFEN 400 MG TAB PO SCH ×3 (08:19→22:08)
[2021-12-06] MEDS: CYCLOBENZAPRINE 10 MG TAB PO PRN (08:20)
[2021-12-06] MEDS ORDERED: SERTRALINE 50 MG TAB PO STA (10:10)
[2021-12-06] MEDS: LURASIDONE 80 MG TAB PO SCH (10:14)
[2021-12-06] MEDS: NICOTINE 21MG/24HR PATCH TRANSDERM SCH (10:14)
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
[2021-12-06 14:30] VITALS: BMI 56.2
[2021-12-06] MEDS: BENZOCAINE 20 % GEL 15 GM TUBE MM PRN ×2 (20:15→22:07)
[2021-12-06] MEDS: traZODone HCL 100 MG TAB PO SCH (20:55)
[2021-12-06] MEDS: lamoTRIgine 100 MG TAB PO SCH (20:55)
[2021-12-07] MEDS: NICOTINE 21MG/24HR PATCH TRANSDERM SCH (08:19)
[2021-12-07] MEDS: BENZOCAINE 20 % GEL 15 GM TUBE MM PRN (08:19)
[2021-12-07] MEDS: FAMOTIDINE 20 MG TAB PO SCH (08:20)
[2021-12-07] MEDS: LURASIDONE 80 MG TAB PO SCH (08:20)
[2021-12-07] MEDS: IBUPROFEN 400 MG TAB PO SCH (08:20)
[2021-12-07] MEDS: CYCLOBENZAPRINE 10 MG TAB PO PRN (08:21)
[2021-12-07 08:24] VITALS: BP 139/79; PULSE 93; RESP 18; TEMP 97.7
[2021-12-07] MEDS ORDERED: SERTRALINE 50 MG TAB PO SCH (09:00)
--- NOTE | 2021-12-07 10:48 | P.DS ---
Providers Date of admission: 12/03/21 15:51 Expected date of discharge: 12/07/21 Attending physician: Quinton Lo MD Consults: 12/03/21 15:52 Consult Physician Routine Consulting Provider: Devon Arnold Consult Reason/Comments: medical management Do you want consulting provider notified?: Yes Primary care physician: Onel Diggs - Discharge Diagnosis(es) (1) Bipolar 2 disorder, major depressive episode Current Visit: Yes Status: Acute Priority: High (2) PTSD (post-traumatic stress disorder) Current Visit: Yes Status: Chronic Priority: Medium (3) Opiate abuse, episodic Current Visit: Yes Status: Chronic Priority: Medium (4) Borderline personality disorder Current Visit: Yes Status: Chronic Priority: Medium (5) Nicotine dependence Current Visit: Yes Status: Chronic Priority: Medium Hospital Course: Admission HPI: Initial psychiatric evaluation was completed by Dr Main on 12/04/2021 who wrote: "The patient is a 31-year-old female. She lives with her and significant other. She presented to the ED for evaluation of depression and suicidal thoughts.She said she had to pull her car over because she was afraid she would drive into traffic. Patient has had long-term problems with depression. She said that she has been previously diagnosed bipolar disorder, borderline personality disorder, OCD, and PTSD. She has that she has had episodes of mood swings. She will get manic episodes when she has high energy. She may go on spending sprees. She'll have decreased need for sleep. She will have racing thoughts. She says the episodes last round week and then will drop into depression. She says that she has barely any middle ground. She notes that in the last 2 months, she has been primarily been in depression and has not seen any manic symptoms. Does note that she has had 1 prior psychiatric hospitalization at this facility on 09/08/2020. At that time, she was diagnosed major depression. Can medications that she has been on include Lamictal, BuSpar, Abilify, and trazodone. She said the trazodone is recent addition, though she has been on the other medications for quite a period of time. She is healthy [facility]. She also notes that in the past she has been on Pristiq, which she took for about 4 months, though has st opped it because she was not getting any benefits from the medication. She notes that she has been sleeping poorly, loss of motivation, and loss of interest. She says she has persistent thoughts of suicide and just more recently had intense suicidal thoughts without any trigger. She says in the past, some stress issue or another might set this off, though now things have worsened to the point where these thoughts just come on to her. She notes that she does have what she describes as "occasional hallucinations" where she might hear her name or some noises, though it is nothing that is very persistent. She says that she does not get any command hallucinations. She has had some visual perception issues of lights and shadows. She notes that there are times that he gets delusional thinking on her depression gets bad. She notes that she has OCD symptoms which are mainly intrusive thoughts I can go over and her head repeatedly. She notes that she'll have a few compulsive behaviors, such as going through certain rituals are doing certain things 3 times repeatedly. She describes dramatic issues from her past, though she did not go into detail. She has chronic back pain and notes that the pain and depression seem to aggravate one another. She is admitted for further evaluation. Hospital course: Upon admission to the unit patient was initially patient was endorsing signifi cant suicidal thoughts and presenting with a distressed affect. Patient was however directable and agreeable to commence treatment. Patient got along well with other patients on the unit and followed unit protocol. Patient was compliant with the medications and denied any side effects throughout hospital course. Patient was started on Lamictal, Latuda, and trazodone. Her home medication of Abilify was discontinued and the patient's BuSpar was tapered. Patient spoke of her stressors and engaged in therapy both group and individual. Patient was also seen by medical team for history and physical exam. We'll request the hospitalization, her BuSpar was tapered off. The patient endorsed significant PTSD symptoms and was agreeable to starting Zoloft for management of depression/anxiety/PTSD. Throughout the course of the hospitalization patient gradually improved with regards to her mood, sleep and became future oriented with improved insight and judgment. On the day of discharge patient denied any suicidal or homicidal ideations intent or plan denied any auditory or visual hallucinations. Patient endorsed wanting to live for her health and family. The patient denied any access to guns or weapons. Patient denied any paranoia and did not endorse any delusions. Patient does have a significant history of substance abuse however was counseled on abstaining from all substances including alcohol and marijuana. Patient was offered however declined inpatient substance-abuse rehab. Patient was also counseled on the medications and need for regular compliance and was encouraged to follow-up with their outpatient appointment for mental health and also for primary care. Prior to discharge a family meeting will be arranged by home health care social worker to answer any questions and ensure safety upon discharge. Mental status exam: General Appearance: Patient appears to be stated age is alert, pleasant, and cooperative. Patient is in no acute distress and has fair hygiene and grooming. Obese body habitus, multiple tattoos and multiple piercings. Behavior: Patient is calmly seated without any agitated behavior. Eye contact is appropriate. Speech: Patient's speech is fluent and nonpressured. Mood/Affect: Patient reports their mood is "feeling pretty good", affect is congruent and euthymic to bright. Suicidality/Homicidality: Patient denies having any suicidal or homicidal ideation intent or plan. Perceptions: Patient denies any auditory or visual hallucinations. Though content/process: There is no evidence of any delusional thought content and thought process is linear and goal-directed. The patient is future oriented. Memory and concentration: AOX3, grossly intact for the purposes of this session. Can spell "WORLD" backwards correctly. Judgment and insight: Improved with guarded prognosis Impression: Bipolar 2 disorder, depressed episode Nicotine dependence PTSD Borderline personality disorder Opiate use disorder Plan: -Continue with discharge today as patient has improved and stabilized psychiatrically and is not currently an imminent threat to herself and/or others. Patient will remain at chronically elevated risk due to her impulsivity and substance use. -Continue medications: Trazodone 100 mg daily at bedtime for insomnia Zoloft milligrams by mouth daily for depression/anxiety/PTSD Lamictal 200 mg daily at bedtime for bipolar depression Latuda 80 mg by mouth daily for bipolar depression -Patient was counseled on the need for medication compliance and appropriate follow-up at mental health and also primary care for medical issues. Patient ve rbalized understanding and agreed. -Social work to arrange for and conduct family meeting to ensure safety upon discharge and answer any questions/concerns. Social work also to arrange for patients follow up appointments with [facility] for psychiatric care along with follow up with primary care provider. -Patient counseled on abstaining from recreational drugs and marijuana and alcohol. Was informed/educated on the adverse effects on their physical and mental health. Patient verbally agreed and understood. Patient was offered substance abuse treatment however declined at this time. -Patient was instructed to return to the hospital or seek immediate medical care if their psychiatric or medical symptoms do worsen or reoccur. -Psychoeducation and supportive therapy provided to patient. Risks and benefits of pharmacological treatment versus the risks and benefits of nontreatment weight and discussed. Informed consent discussion held. Common side effects of psychotropics discussed such as, but not limited to headache, GI disturbance, sexual dysfunction, movement disorders, sedation, and orthostatic hypotension. Life threatening and blackbox warnings of prescribed medications also discussed. Potential risks of operating a vehicle or heavy machinery discussed with patient at length. Advised on importance of compliance and a reliable and responsible manner. Patient advised to review FDA consumer labeling of all medications prior to taking. Patient verbalized understanding of potential risks, and agrees with current treatment plan. Patient advised to medically contact physician/emergency personnel if any acute changes in condition occur. Plan - Discharge Summary Discharge Rx Participant: No New Discharge Prescriptions: New traZODone HCL [Desyrel] 100 mg PO HS 30 Days tab Sertraline [Zoloft] 50 mg PO DAILY 30 Days tab Nicotine 21Mg/24Hr Patch [Habitrol] 1 patch TRANSDERM DAILY 30 Days patch lamoTRIgine [LaMICtal] 200 mg PO HS 30 Days tab Lurasidone [Latuda] 80 mg PO DAILY 30 Days tab Continue Aviane 0.1-0.02 Tablet 1 tab PO HS Ergocalciferol [Vitamin D2 (1250 Mcg = 43498 Iu)] 1,250 mcg PO WE Cyclobenzaprine [Flexeril] 10 mg PO DAILY PRN PRN Reason: Muscle Spasm Discontinued traZODone HCL [Desyrel] 100 mg PO HS lamoTRIgine [LaMICtal] 200 mg PO HS busPIRone HCL 15 mg PO TID ARIPiprazole [Abilify] 20 mg PO HS Discharge Medication List Aviane 0.1-0.02 Tablet 1 tab PO HS 09/07/20 [History] Cyclobenzaprine [Flexeril] 10 mg PO DAILY PRN 12/03/21 [History] Ergocalciferol [Vitamin D2 (1250 Mcg = 15789 Iu)] 1,250 mcg PO WE 12/03/21 [History] Lurasidone [Latuda] 80 mg PO DAILY 30 Days tab 12/07/21 [Rx] Nicotine 21Mg/24Hr Patch [Habitrol] 1 patch TRANSDERM DAILY 30 Days patch 12/07/21 [Rx] Sertraline [Zoloft] 50 mg PO DAILY 30 Days tab 12/07/21 [Rx] lamoTRIgine [LaMICtal] 200 mg PO HS 30 Days tab 12/07/21 [Rx] traZODone HCL [Desyrel] 100 mg PO HS 30 Days tab 12/07/21 [Rx] Follow up Appointment(s)/Referral(s): [facility] [Outside] - 12/14/21 11:00 am (Dr Dupont 12/23/21 at 2 12/14/21 at 11 with Tyler carlton [place] ) Onel Diggs MD [Primary Care Provider] - 1-2 days Patient Instructions/Handouts: Bipolar Disorder (DC), Post Traumatic Stress Disorder (DC), Obsessive Compulsive Disorder (DC) Activity/Diet/Wound Care/Special Instructions: Activity and diet as tolerated. Avoid the use of street drugs and alcohol. Take all medications as prescribed. When you are in need of refills on your medications please contact your medical provider and/or outpatient psychiatrist to have this done. Please go to scheduled outpatient appointment for aftercare treatment. If symptoms return or become worse, call the crisis line at and/or go to the nearest emergency room for evaluation Recommended that patient follows up with a sleep study for sleep apnea. Discharge Disposition: HOME SELF-CARE
[2021-12-08] MEDS ORDERED: ERGOCALCIFEROL 1,250 MCG (50,000 IU) CAPSULE PO SCH (09:00)
== END 2021-12-07 12:14 | disposition home or self-care (01) | DRG 885 ==
LOC: EC 09:51 → 3MHU 15:51
PROVIDERS: ADMIT Psychiatry & Neurology Psychiatry; ATTEND Psychiatry & Neurology Psychiatry
DX: F31.30 Bipolar disorder, current episode depressed, mild or moderate severity, unspecified (principal); Z68.43 Body mass index [BMI] 50.0-59.9, adult; R45.851 Suicidal ideations; E66.01 Morbid (severe) obesity due to excess calories; F10.10 Alcohol abuse, uncomplicated; F11.10 Opioid abuse, uncomplicated; F12.90 Cannabis use, unspecified, uncomplicated; F17.210 Nicotine dependence, cigarettes, uncomplicated; F22 Delusional disorders; F31.81 Bipolar II disorder; F42.9 Obsessive-compulsive disorder, unspecified; F43.10 Post-traumatic stress disorder, unspecified; F60.3 Borderline personality disorder; G47.00 Insomnia, unspecified; G89.29 Other chronic pain; K21.9 Gastro-esophageal reflux disease without esophagitis; Z79.899 Other long term (current) drug therapy; Z20.822 Contact with and (suspected) exposure to COVID-19
CPT/HCPCS: 80053; 80061; 80306; 81001; 81025; 82075; 83036; 84443; 85025; 87635; 99285

== ENCOUNTER → 2022-03-09 | Outpatient (CLI) | payer BC, OTHER ==
--- NOTE | 2022-03-09 17:11 | CONS ---
CONSULTATION DATE OF SERVICE: 03/09/2022 This 31-year-old lady has been evaluated in [facility] for possible obstructive sleep apnea-hypopnea syndrome and significant excessive daytime sleepiness. HISTORY OF PRESENT ILLNESS/SLEEP-WAKE EVALUATION: Patient's usual sleep schedule is from 9 p.m. to 7:30 a.m. on weekdays and from 10 p.m. to 8 a.m. on weekends. At present she has no problems with falling asleep. She is taking medication and it helps her fall asleep. During sleep she has extremely loud snoring and witnessed episodes of stopped breathing. During sleep she grinds her teeth, has restless leg symptoms, gasping for air, snoring. The patient wakes up from sleep up to 4 times, with 3 episodes of nocturia. In the morning the patient wakes up tired, has difficulties paying attention, falling asleep during the day. She has problems with memory, concentration, depression, sexual dysfunction. Cor[place]an Sleepiness Scale is significantly increased at 16. No history of hypnagogic hallucination, sleep paralysis or cataplexy. PAST MEDICAL HISTORY: Positive for bipolar disorder, obsessive-compulsive disorder, post-traumatic stress disorder. PAST SURGICAL HISTORY: in 2013. MEDICATIONS: 1. Latuda 40 mg once a day. 2. Zoloft 50 mg once a day. 3. Trazodone 200 mg at bedtime. 4. Ibuprofen 400 mg once a day. 5. Flexeril 10 mg once a day. 6. Lamictal 200 mg once a day. 7. Vitamin D supplement. 8. with relationship to the cycle. SOCIAL HISTORY: Positive for smoking about one pack a day since age of 14. Alcohol consumption: Last use 3 months ago. REVIEW OF SYSTEMS: Snoring, awakenings from sleep, twitching of her legs during the night, sleepiness during the day. No fevers. No double vision. No recent chest pain. No shortness of breath. No abdominal pain. No bleeding episodes. No blood in the urine. No seizure episodes. PHYSICAL EXAMINATION: GENERAL: Pleasant lady without distress. VITAL SIGNS: BP 115/79, HR 97, RR 18, height 5 feet 0 inches, weight 283.4, body mass index 55.2, temperature 97.4, oxygen saturation at room air 95%. HEENT: PERRLA, EOMI, evaluation of oropharynx showed tongue protrudes midline. Extremely low position of soft palate; Mallampati IV. NECK: Supple, no JVD. Thyroid is not palpable. Neck measures 17-1/2 inches in circumference. LUNGS: Clear to percussion and to auscultation. Good air exchange. No wheezing or rhonchi. HEART: S1, S2 regular. No murmurs, gallops, or rubs. ABDOMEN: Obese. EXTREMITIES: No clubbing or cyanosis. [employer]: Awake, alert, and oriented X3. Cranial nerves 2 to 7 intact. There is no fasciculation or atrophy. noted. No focal deficits observed. IMPRESSION: 1. Snoring, witnessed episodes of stopped breathing during sleep, multiple awakenings from sleep with nocturia, extremely low position of soft palate, Mallampati IV, wide neck, 17-1/2 inches in circumference, sleepiness, Corcoran Sleepiness Scale significantly increased at 16; obstructive sleep apnea-hypopnea syndrome. 2. Obesity; body mass index 55.2. 3. History of twitching of legs; possible periodic limb movements. 4. History of restless leg symptoms. 5. History of bipolar disorder. 6. History of post-traumatic stress disorder. 7. History of obsessive-compulsive disorder. 8. Status post . PLAN: 1. Polysomnography for evaluation of patient's breathing during sleep and significant excessive daytime sleepiness; Corcoran Sleepiness Scale increased to 16. 2. CPAP/BiPAP titration if sleep study confirms obstructive sleep apnea-hypopnea syndrome. 3. Preferable position during sleep on the side. 4. No driving if patient feels any sleepiness. 5. I will see patient for follow up visit to explain results of testing and following plan. Thank you very much for referring this patient for consultation. Sincerely, Ben Fermin MD, PhD, FAASM Diplomat of [employer] [employer] Sleep Medicine Board of [place] [employer] Visual Display Associate of [facility] [place] MMODL / CELIAN: [id number] /
== END ==
LOC: SLEEP 14:03
PROVIDERS: ATTEND Internal Medicine
DX: G47.33 Obstructive sleep apnea (adult) (pediatric) (principal); E66.9 Obesity, unspecified; Z68.43 Body mass index [BMI] 50.0-59.9, adult; G25.81 Restless legs syndrome; F31.9 Bipolar disorder, unspecified; F43.10 Post-traumatic stress disorder, unspecified; F42.9 Obsessive-compulsive disorder, unspecified; F17.210 Nicotine dependence, cigarettes, uncomplicated
CPT/HCPCS: 99211

== ENCOUNTER 2022-10-20 17:59 | Emergency (ER) | payer BC, OTHER ==
[2022-10-20 18:20] VITALS: BP 147/74; PULSE 100; RESP 20; TEMP 98
[2022-10-20] MEDS ORDERED: ALPRAZolam 0.5 MG TAB PO STA (21:42)
[2022-10-20 22:41] LABS: Amphetamine Screen,Urine Not Detected (NotDetected); Barbiturate Screen,Urine Not Detected (NotDetected); Benzodiazepines Screen,Urine Not Detected (NotDetected); Cocaine Screen,Urine Not Detected (NotDetected); Methadone Screen, Urine Not Detected (NotDetected); Opiate Screen,Urine Not Detected (NotDetected); Oxycodone Screen, Urine Detected (NotDetected); Phencyclidine Screen,Urine Not Detected (NotDetected); Tricyclic Antidepressant,Urine Detected (NotDetected); Urn Cannabinoid Scrn Detected (NotDetected)
[2022-10-20] MEDS ORDERED: OLANZapine 5 MG TAB PO PRN (23:34)
[2022-10-20] MEDS ORDERED: OLANZapine 10 MG VIAL IM PRN (23:45)
[2022-10-21 00:30] LABS: Basophils % (A) 0 %; Eosinophils # (A) 0.2 k/uL (0-0.7); Eosinophils % (A) 2 %; HCT 42.2 % (34.0-46.0); HGB 14.5 gm/dL (11.4-16.0); Lymphocytes # (A) 2.2 k/uL (1.0-4.8); Lymphocytes % (A) 29 %; MCH 29.6 pg (25.0-35.0); MCHC 34.2 g/dL (31.0-37.0); MCV 86.5 fL (80.0-100.0); Mean Platelet Volume 6.9; Monocytes # (A) 0.5 k/uL (0-1.0); Monocytes % (A) 7 %; Neutrophils # (A) 4.7 k/uL (1.3-7.7); Neutrophils % (A) 61 %; Platelet Count 263 k/uL (150-450); RBC 4.89 m/uL (3.80-5.40); RDW 13.8 % (11.5-15.5); WBC 7.7 k/uL (3.8-10.6)
--- NOTE | 2022-10-21 00:53 | ED ---
Psych HPI - General Chief Complaint: Psychiatric Symptoms Stated Complaint: mental health Time Seen by Provider: 10/20/22 21:30 Source: patient Mode of arrival: ambulatory - History of Present Illness Initial Comments: 32-year-old female past medical history of OCD, borderline personality disorder, anxiety and depression who presents emergency Department with auditory hallucina tions. States that she follows with [facility]. 2 weeks ago they recently changed her medications. She was taken off hydroxyzine and trazodone. She was placed on Seroquel. States that since this change was initiated that she now has significant anxiety. Reports that she can't leave her house as she is afraid that she is going to . States that she is also concerned because she feels like she is going to hurt herself. She has been taking her medications as directed. Admits to marijuana use and will occasionally take an oxycodone which is not prescribed to her. Denies any attempt at harming herself but does have thoughts of driving off the road. Denies concern for as she is ase xual. Denies homicidal ideations. No other alleviating, precipitating or modifying factors - Related Data Home Medications Medication Instructions Recorded Confirmed Aviane 0.1-0.02 Tablet 1 tab PO HS 09/07/20 03/23/22 Cyclobenzaprine [Flexeril] 10 mg PO DAILY PRN 12/03/21 03/23/22 Ergocalciferol [Vitamin D2 (1250 1,250 mcg PO WE 12/03/21 03/23/22 Mcg = [id number] Iu)] Lurasidone [Latuda] 40 mg PO DAILY 03/23/22 03/23/22 traZODone HCL [Desyrel] 200 mg PO HS 03/23/22 03/23/22 Previous Rx's Medication Instructions Recorded Ibuprofen [Motrin] 400 mg PO Q8HR PRN 7 Days tab 12/07/21 Sertraline [Zoloft] 50 mg PO DAILY 30 Days tab 12/07/21 lamoTRIgine [LaMICtal] 200 mg PO HS 30 Days tab 12/07/21 Allergies Allergy/AdvReac Type Severity Reaction Status Date / Time No Known Allergies Allergy Verified 03/23/22 13:00 Review of Systems ROS Statement: Those systems with pertinent positive or pertinent negative responses have been documented in the HPI. ROS Other: All systems not noted in ROS Statement are negative. Past Medical History Past Medical History: No Reported History Additional Past Medical History / Comment(s): OCD, borderline personality disorder. History of Any Multi-Drug Resistant Organisms: None Reported Past Surgical History: Section Additional Past Surgical History / Comment(s): I&D of cyst to buttocks Past Anesthesia/Blood Transfusion Reactions: No Reported Reaction Past Psychological History: Anxiety, Bipolar, PTSD Smoking Status: Current every day smoker Past Alcohol Use History: Occasional Past Drug Use History: Marijuana General Exam Limitations: no limitations General appearance: alert, anxious Head exam: Present: atraumatic, normocephalic, normal inspection Eye exam: Present: normal appearance, PERRL, EOMI. Absent: scleral icterus, conjunctival injection, periorbital swelling ENT exam: Present: normal exam, mucous membranes moist Neck exam: Present: normal inspection. Absent: tenderness, meningismus, lymphadenopathy Respiratory exam: Present: normal lung sounds bilaterally. Absent: respiratory distress, wheezes, rales, rhonchi, stridor Cardiovascular Exam: Present: regular rate, normal rhythm, normal heart sounds. Absent: systolic murmur, diastolic murmur, rubs, gallop, clicks GI/Abdominal exam: Present: soft, normal bowel sounds. Absent: distended, tenderness, guarding, rebound, rigid Extremities exam: Present: normal inspection, full ROM, normal capillary refill. Absent: tenderness, pedal edema, joint swelling, calf tenderness Back exam: Present: normal inspection Neurological exam: Present: alert, oriented X3, CN II-XII intact Psychiatric exam: Present: depressed, anxious, suicidal ideation Skin exam: Present: warm, dry, intact, normal color. Absent: rash Course Vital Signs 10/20/22 18:16 Temperature 98 F Pulse Rate 100 Respiratory 20 Rate Blood Pressure 147/74 O2 Sat by Pulse 99 Oximetry Medical Decision Making - Medical Decision Making Upon arrival the patient was placed into room 14. A thorough history and physical exam was performed. She does provide a urine sample which is positive for oxycodone, TCAs and marijuana. She is evaluated by EPS as she is sober. They do feel that the patient needs to be admitted for mental health evaluation. Laboratory studies were obtained as the patient needs to be transferred. Clinical certification is filled out by myself. She is currently awaiting transfer in stable condition - Lab Data Result diagrams: 10/20/22 23:55 10/20/22 23:55 Lab Results 10/20/22 10/20/22 10/20/22 Range/Units 21:58 21:58 21:58 WBC (3.8-10.6) k/uL RBC (3.80-5.40) m/uL Hgb (11.4-16.0) gm/dL Hct (34.0-46.0) % MCV (80.0-100.0) fL MCH (25.0-35.0) pg MCHC (31.0-37.0) g/dL RDW (11.5-15.5) % Plt Count (150-450) k/uL MPV Neutrophils % % Lymphocytes % % Monocytes % % Eosinophils % % Basophils % % Neutrophils # (1.3-7.7) k/uL Lymphocytes # (1.0-4.8) k/uL Monocytes # (0-1.0) k/uL Eosinophils # (0-0.7) k/uL Basophils # (0-0.2) k/uL Sodium (137-145) mmol/L Potassium (3.5-5.1) mmol/L Chloride (98-107) mmol/L Carbon Dioxide (22-30) mmol/L Anion Gap mmol/L BUN (7-17) mg/dL Creatinine (0.52-1.04) mg/dL Est GFR (CKD-EPI)AfAm (>60 ml/min/1.73 sqM) Est GFR (CKD-EPI)NonAf (>60 ml/min/1.73 sqM) Glucose (74-99) mg/dL Calcium (8.4-10.2) mg/dL Total Bilirubin (0.2-1.3) mg/dL AST (14-36) U/L ALT (4-34) U/L Alkaline Phosphatase (38-126) U/L Total Protein (6.3-8.2) g/dL Albumin (3.5-5.0) g/dL Urine Color Yellow Urine Appearance Cloudy H (Clear) Urine pH 6.5 (5.0-8.0) Ur Specific [place] 1.031 (1.001-1.035) Urine Protein Trace H (Negative) Urine Glucose (UA) Negative (Negative) Urine Ketones Negative (Negative) Urine Blood Negative (Negative) Urine Nitrite Negative (Negative) Urine Bilirubin Negative (Negative) Urine Urobilinogen <2.0 (<2.0) mg/dL Ur Leukocyte Esterase Moderate H (Negative) Urine RBC 1 (0-5) /hpf Urine WBC 15 H (0-5) /hpf Ur Squamous Epith Cells 18 H (0-4) /hpf Calcium Oxalate Crystal Moderate H (None) /hpf Urine Bacteria Rare H (None) /hpf Hyaline Casts 1 (0-2) /lpf Urine Mucus Rare H (None) /hpf Urine HCG, Qual Not Detected (Not Detectd) Urine Opiates Screen Not Detected (NotDetected) Ur Oxycodone Screen Detected H (NotDetected) Urine Methadone Screen Not Detected (NotDetected) Ur Propoxyphene Screen Not Detected (NotDetected) Ur Barbiturates Screen Not Detected (NotDetected) U Tricyclic Antidepress Detected H (NotDetected) Ur Phencyclidine Scrn Not Detected (NotDetected) Ur Amphetamines Screen Not Detected (NotDetected) U Methamphetamines Scrn Not Detected (NotDetected) U Benzodiazepines Scrn Not Detected (NotDetected) Urine Cocaine Screen Not Detected (NotDetected) U Marijuana (THC) Screen Detected H (NotDetected) Coronavirus (PCR) (Not Detectd) 10/20/22 10/20/22 10/20/22 Range/Units 23:55 23:55 23:55 WBC 7.7 (3.8-10.6) k/uL RBC 4.89 (3.80-5.40) m/uL Hgb 14.5 (11.4-16.0) gm/dL Hct 42.2 (34.0-46.0) % MCV 86.5 (80.0-100.0) fL MCH 29.6 (25.0-35.0) pg MCHC 34.2 (31.0-37.0) g/dL RDW 13.8 (11.5-15.5) % Plt Count 263 (150-450) k/uL MPV 6.9 Neutrophils % 61 % Lymphocytes % 29 % Monocytes % 7 % Eosinophils % 2 % Basophils % 0 % Neutrophils # 4.7 (1.3-7.7) k/uL Lymphocytes # 2.2 (1.0-4.8) k/uL Monocytes # 0.5 (0-1.0) k/uL Eosinophils # 0.2 (0-0.7) k/uL Basophils # 0.0 (0-0.2) k/uL Sodium 140 (137-145) mmol/L Potassium 3.9 (3.5-5.1) mmol/L Chloride 104 (98-107) mmol/L Carbon Dioxide 28 (22-30) mmol/L Anion Gap 8 mmol/L BUN 13 (7-17) mg/dL Creatinine 0.84 (0.52-1.04) mg/dL Est GFR (CKD-EPI)AfAm >90 (>60 ml/min/1.73 sqM) Est GFR (CKD-EPI)NonAf >90 (>60 ml/min/1.73 sqM) Glucose 87 (74-99) mg/dL Calcium 8.9 (8.4-10.2) mg/dL Total Bilirubin 0.5 (0.2-1.3) mg/dL AST 26 (14-36) U/L ALT 21 (4-34) U/L Alkaline Phosphatase 81 (38-126) U/L Total Protein 7.3 (6.3-8.2) g/dL Albumin 4.2 (3.5-5.0) g/dL Urine Color Urine Appearance (Clear) Urine pH (5.0-8.0) Ur Specific [place] (1.001-1.035) Urine Protein (Negative) Urine Glucose (UA) (Negative) Urine Ketones (Negative) Urine Blood (Negative) Urine Nitrite (Negative) Urine Bilirubin (Negative) Urine Urobilinogen (<2.0) mg/dL Ur Leukocyte Esterase (Negative) Urine RBC (0-5) /hpf Urine WBC (0-5) /hpf Ur Squamous Epith Cells (0-4) /hpf Calcium Oxalate Crystal (None) /hpf Urine Bacteria (None) /hpf Hyaline Casts (0-2) /lpf Urine Mucus (None) /hpf Urine HCG, Qual (Not Detectd) Urine Opiates Screen (NotDetected) Ur Oxycodone Screen (NotDetected) Urine Methadone Screen (NotDetected) Ur Propoxyphene Screen (NotDetected) Ur Barbiturates Screen (NotDetected) U Tricyclic Antidepress (NotDetected) Ur Phencyclidine Scrn (NotDetected) Ur Amphetamines Screen (NotDetected) U Methamphetamines Scrn (NotDetected) U Benzodiazepines Scrn (NotDetected) Urine Cocaine Screen (NotDetected) U Marijuana (THC) Screen (NotDetected) Coronavirus (PCR) Not Detected (Not Detectd) Disposition Clinical Impression: Depression Disposition: TRANSFER TO PSYCH HOSP/UNIT Condition: Stable Is patient prescribed a controlled substance at d/c from ED?: No Referrals: Onel Diggs MD [Primary Care Provider] - 1-2 days - Out of Hospital Transfer - Req. Specs Out of Hospital Transfer - Requested Specifics: Psychiatric Non-ICU ([facility]rista)
[2022-10-21 01:06] LABS: ALT 21 U/L (4-34); AST 26 U/L (14-36); African American GFR (CKD) >90 (>60 ml/min/1.73 sqM); Albumin 4.2 g/dL (3.5-5.0); Alkaline Phosphatase 81 U/L (38-126); Anion Gap 8 mmol/L; Blood Urea Nitrogen 13 mg/dL (7-17); Calcium 8.9 mg/dL (8.4-10.2); Carbon Dioxide 28 mmol/L (22-30); Chloride 104 mmol/L (98-107); Glucose 87 mg/dL (74-99); Non-African American GFR(CKD) >90 (>60 ml/min/1.73 sqM); Potassium 3.9 mmol/L (3.5-5.1); Sodium 140 mmol/L (137-145); Total Bilirubin 0.5 mg/dL (0.2-1.3); Total Protein 7.3 g/dL (6.3-8.2)
[2022-10-21 06:57] LABS: Appearance,Urine Cloudy (Clear); Bacteria,Urine Rare /hpf; Bilirubin,Urine Negative (Negative); Blood,Urine Negative (Negative); Calcium Oxalate Crystals,Urine Moderate /hpf; Color,Urine Yellow; Glucose,Urine (UA) Negative (Negative); Hyaline Casts,Urine 1 /lpf (0-2); Ketones,Urine Negative (Negative); Leukocyte Esterase,Urine Moderate (Negative); Mucus,Urine Rare /hpf; Nitrite,Urine Negative (Negative); PH, Urine 6.5 (5.0-8.0); Protein,Urine Trace (Negative); RBC,Urine 1 /hpf (0-5); Specific Gravity,Urine 1.031 (1.001-1.035); Squamous Epithelial Cell,Urine 18 /hpf (0-4); Urobilinogen,Urine <2.0 mg/dL (<2.0); WBC,Urine 15 /hpf (0-5)
== END 2022-10-21 06:41 ==
LOC: EC 17:59
DX: F32.A Depression, unspecified (principal); F41.9 Anxiety disorder, unspecified; F17.200 Nicotine dependence, unspecified, uncomplicated; F12.90 Cannabis use, unspecified, uncomplicated; Z20.822 Contact with and (suspected) exposure to COVID-19
CPT/HCPCS: 36415; 80053; 80306; 81001; 81025; 82075; 85025; 87635; 99285

== ENCOUNTER 2023-05-04 15:39 | Inpatient (IN) | payer BC, MEDICAID ==
--- NOTE | 2023-05-04 17:19 | ED ---
General Adult HPI - General Chief complaint: Psychiatric Symptoms Stated complaint: Mental Health Suicidal Time Seen by Provider: 05/04/23 17:12 Source: patient, RN notes reviewed, old records reviewed Mode of arrival: ambulatory Limitations: no limitations - History of Present Illness Initial comments: 32-year-old female presenting for mental health evaluation. Patient states she has thoughts of harming herself with multiple plans including cutting herself. She states she has required inpatient psychiatric evaluation and treatment in the past. She denies any ingestion. - Related Data Home Medications Medication Instructions Recorded Confirmed Aviane 0.1-0.02 Tablet 1 tab PO HS 09/07/20 03/23/22 Cyclobenzaprine [Flexeril] 10 mg PO DAILY PRN 12/03/21 03/23/22 Ergocalciferol [Vitamin D2 (1250 1,250 mcg PO WE 12/03/21 03/23/22 Mcg = [id number] Iu)] Lurasidone [Latuda] 40 mg PO DAILY 03/23/22 03/23/22 traZODone HCL [Desyrel] 200 mg PO HS 03/23/22 03/23/22 Previous Rx's Medication Instructions Recorded Ibuprofen [Motrin] 400 mg PO Q8HR PRN 7 Days tab 12/07/21 Sertraline [Zoloft] 50 mg PO DAILY 30 Days tab 12/07/21 lamoTRIgine [LaMICtal] 200 mg PO HS 30 Days tab 12/07/21 Allergies Allergy/AdvReac Type Severity Reaction Status Date / Time No Known Allergies Allergy Verified 03/23/22 13:00 Review of Systems ROS Statement: Those systems with pertinent positive or pertinent negative responses have been documented in the HPI. ROS Other: All systems not noted in ROS Statement are negative. Past Medical History Past Medical History: No Reported History Additional Past Medical History / Comment(s): OCD, borderline personality disorder. History of Any Multi-Drug Resistant Organisms: None Reported Past Surgical History: Section Additional Past Surgical History / Comment(s): I&D of cyst to buttocks Past Anesthesia/Blood Transfusion Reactions: No Reported Reaction Past Psychological History: Anxiety, Bipolar, PTSD Smoking Status: Current every day smoker Past Alcohol Use History: Occasional Past Drug Use History: Marijuana General Exam Limitations: no limitations General appearance: alert, in no apparent distress Head exam: Present: atraumatic, normocephalic Eye exam: Present: normal appearance, PERRL ENT exam: Present: normal exam Neck exam: Present: normal inspection. Absent: tenderness, meningismus Respiratory exam: Present: normal lung sounds bilaterally. Absent: respiratory distress, wheezes Cardiovascular Exam: Present: regular rate, normal rhythm GI/Abdominal exam: Present: soft. Absent: distended, tenderness, guarding Extremities exam: Present: normal inspection, normal capillary refill. Absent: pedal edema Neurological exam: Present: alert, oriented X3, CN II-XII intact. Absent: motor sensory deficit Psychiatric exam: Present: depressed, anxious, suicidal ideation Skin exam: Present: warm, dry, intact Course Vital Signs 05/04/23 17:01 Temperature 98.1 F Pulse Rate 118 H Respiratory 20 Rate Blood Pressure 174/85 O2 Sat by Pulse 99 Oximetry - Reevaluation(s) Reevaluation #1: 05/04/23 17:19 Clear for EPS Medical Decision Making - Medical Decision Making Was pt. sent in by a medical professional or institution (, PA, H[employer] D[employer] GALV[employer]ER, urgent care, hospital, or jail...) When possible be specific @ -No Did you speak to anyone other than the patient for history (EMS, parent, family, police, friend...)? What history was obtained from this source @ -No Did you review nursing and triage notes (agree or disagree)? Why? @ -I reviewed and agree with nursing and triage notes Were old charts reviewed (outside hosp., previous admission, EMS record, old EKG, old radiological studies, urgent care reports/EKG's, jail records)? Report findings @ -No old charts were reviewed Differential Diagnosis (chest pain, altered mental status, abdominal pain women, abdominal pain men, vaginal bleeding, weakness, fever, dyspnea, syncope, headache, dizziness, GI bleed, back pain, seizure, CVA, palpatations, mental health, musculoskeletal)? @ -Differential Mental Health Depression, anxiety, bipolar, psychosis, schizophrenia, borderline personality, situational depression, adjustment disorder, behavioral disorder, brain tumor, malingering, substance abuse, encephalopathy, medication reaction, dementia, hypothyroidism, degenerative neurologic disorder, lupus.... This is not meant to be all-inclusive list EKG interpreted by me (3pts min.). @ -As above X-rays interpreted by me (1pt min.). @ -None done CT interpreted by me (1pt min.). @ -None done U/S interpreted by me (1pt. min.). @ -None done What testing was considered but not performed or refused? (CT, X-rays, U/S, lab s)? Why? @ -None What meds were considered but not given or refused? Why? @ -None Did you discuss the management of the patient with other professionals (professionals i.e. DrVictor Manuel, PA, H[employer]ER, lab, RT, psych nurse, social work job titles, waste disposal plant operator, teacher, president and chief executive officer, manager case)? Give summary @ -EPS nurse, plan to admit Was smoking cessation discussed for >3mins.? @ -No Was critical care preformed (if so, how long)? @ -No Were there social determinants of health that impacted care today? How? (Homelessness, low income, unemployed, alcoholism, drug addiction, transportation, low edu. Level, literacy, decrease access to med. care, intermediate, rehab)? @ -No Was there de-escalation of care discussed even if they declined (Discuss DNR or withdrawal of care, Hospice)? DNR status @ -No What co-morbidities impacted this encounter? (DM, HTN, Smoking, COPD, CAD, Cancer, CVA, ARF, Chemo, Hep., AIDS, mental health diagnosis, sleep apnea, morbid obesity)? @ -[Depression Was patient admitted / discharged? Hospital course, mention meds given and route, prescriptions, significant lab abnormalities, going to OR and other pertinent info. @ -32-year-old female presenting for mental health evaluation, suicidal ideation, patient medically cleared and evaluated by EPS and felt to require inpatient psychiatric evaluation treatment. She will be admitted to this institution. Undiagnosed new problem with uncertain prognosis? @ -No Drug Therapy requiring intensive monitoring for toxicity (Heparin, Nitro, Insulin, Cardizem)? @ -No Were any procedures done? @ -No Diagnosis/symptom? @ Depression, suicidal ideation Acute, or Chronic, or Acute on Chronic? @ -Acute on chronic Uncomplicated (without systemic symptoms) or Complicated (systemic symptoms)? @ -default Side effects of treatment? @ -No Exacerbation, Progression, or Severe Exacerbation? @ -No Poses a threat to life or bodily function? How? (Chest pain, [place], [place], pneumonia, PE, COPD, DKA, ARF, appy, cholecystitis, CVA, Diverticulitis, Homicidal, Suicidal, threat to staff... and all critical care pts) @ -[Yes, self-harm - Lab Data Lab Results 05/04/23 05/04/23 Range/Units 17:30 17:44 Urine Opiates Screen Not Detected (NotDetected) Ur Oxycodone Screen Not Detected (NotDetected) Urine Methadone Screen Not Detected (NotDetected) Ur Propoxyphene Screen Not Detected (NotDetected) Ur Barbiturates Screen Not Detected (NotDetected) U Tricyclic Antidepress Not Detected (NotDetected) Ur Phencyclidine Scrn Not Detected (NotDetected) Ur Amphetamines Screen Not Detected (NotDetected) U Methamphetamines Scrn Not Detected (NotDetected) U Benzodiazepines Scrn Detected H (NotDetected) Urine Cocaine Screen Not Detected (NotDetected) U Marijuana (THC) Screen Detected H (NotDetected) Influenza Type A (PCR) Not Detected (Not Detectd) Influenza Type B (PCR) Not Detected (Not Detectd) RSV (PCR) Not Detected (Not Detectd) SARS-CoV-2 (PCR) Not Detected (Not Detectd) Disposition Clinical Impression: Suicidal ideation Disposition: ADMITTED IP TO THIS [facility] Condition: Stable Is patient prescribed a controlled substance at d/c from ED?: No Referrals: Onel Diggs MD [Primary Care Provider] - 1-2 days Time of Disposition: 20:26
[2023-05-04 20:00] LABS: Cocaine Screen,Urine Not Detected (NotDetected); Opiate Screen,Urine Not Detected (NotDetected); Phencyclidine Screen,Urine Not Detected (NotDetected); Urn Cannabinoid Scrn Detected (NotDetected)
[2023-05-04 20:01] LABS: Amphetamine Screen,Urine Not Detected (NotDetected); Barbiturate Screen,Urine Not Detected (NotDetected); Benzodiazepines Screen,Urine Detected (NotDetected); Methadone Screen, Urine Not Detected (NotDetected); Oxycodone Screen, Urine Not Detected (NotDetected); Tricyclic Antidepressant,Urine Not Detected (NotDetected)
[2023-05-04] MEDS ORDERED: MAG HYDROX/AL HYDROX/SIMETH 30 ML CUP PO PRN (21:22)
[2023-05-04] MEDS ORDERED: ACETAMINOPHEN TAB 325 MG TAB PO PRN (21:22)
[2023-05-04] MEDS ORDERED: MAGNESIUM HYDROXIDE 2,400 MG/30 ML CUP PO PRN (21:22)
[2023-05-04] MEDS ORDERED: haloperidoL 5 MG TAB PO PRN (21:25)
[2023-05-04] MEDS: haloperidoL 5 MG TAB PO SCH (22:42)
[2023-05-04] MEDS: lamoTRIgine 100 MG TAB PO SCH (22:42)
[2023-05-04] MEDS ORDERED: hydrOXYzine pamoate 25 MG CAP PO PRN (23:00)
[2023-05-05] MEDS: BACLOFEN 10 MG TAB PO PRN (02:16)
[2023-05-05 06:49] LABS: Appearance,Urine Cloudy (Clear); Bacteria,Urine Rare /hpf; Bilirubin,Urine Negative (Negative); Blood,Urine Moderate (Negative); Calcium Oxalate Crystals,Urine Moderate /hpf; Color,Urine Yellow; Glucose,Urine (UA) Negative (Negative); Ketones,Urine Negative (Negative); Leukocyte Esterase,Urine Small (Negative); Mucus,Urine Rare /hpf; Nitrite,Urine Negative (Negative); PH, Urine 6.5 (5.0-8.0); Protein,Urine Trace (Negative); RBC,Urine 5 /hpf (0-5); Specific Gravity,Urine 1.029 (1.001-1.035); Squamous Epithelial Cell,Urine 9 /hpf (0-4); Urobilinogen,Urine <2.0 mg/dL (<2.0); WBC,Urine 9 /hpf (0-5)
[2023-05-05 07:44] LABS: Basophils % (A) 0 %; Eosinophils # (A) 0.2 k/uL (0-0.7); Eosinophils % (A) 2 %; HCT 44.2 % (34.0-46.0); HGB 14.6 gm/dL (11.4-16.0); Lymphocytes # (A) 2.1 k/uL (1.0-4.8); Lymphocytes % (A) 24 %; MCH 30.3 pg (25.0-35.0); MCV 91.7 fL (80.0-100.0); Mean Platelet Volume 6.9; Monocytes # (A) 0.6 k/uL (0-1.0); Monocytes % (A) 6 %; Neutrophils % (A) 67 %; Platelet Count 334 k/uL (150-450); RBC 4.82 m/uL (3.80-5.40); RDW 14.6 % (11.5-15.5)
[2023-05-05 08:19] LABS: ALT 30 U/L (4-34); AST 31 U/L (14-36); African American GFR (CKD) >90 (>60 ml/min/1.73 sqM); Albumin 4.4 g/dL (3.5-5.0); Alkaline Phosphatase 108 U/L (38-126); Anion Gap 10 mmol/L; Blood Urea Nitrogen 12 mg/dL (7-17); Calcium 9.1 mg/dL (8.4-10.2); Carbon Dioxide 26 mmol/L (22-30); Chloride 102 mmol/L (98-107); Glucose 114 mg/dL (74-99); Non-African American GFR(CKD) >90 (>60 ml/min/1.73 sqM); Potassium 4.5 mmol/L (3.5-5.1); Sodium 138 mmol/L (137-145); Total Bilirubin 0.5 mg/dL (0.2-1.3); Total Protein 7.9 g/dL (6.3-8.2)
[2023-05-05] MEDS: AVIANE PO SCH (08:38)
[2023-05-05] MEDS: IBUPROFEN 400 MG TAB PO PRN ×2 (08:39→18:34)
[2023-05-05] MEDS: NICOTINE 14MG/24HR PATCH TRANSDERM SCH (08:39)
[2023-05-05] MEDS ORDERED: SERTRALINE 50 MG TAB PO SCH (09:00)
[2023-05-05] MEDS ORDERED: hydrOXYzine HCL 50 MG/ML 1 ML VIAL IM PRN (09:00)
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
--- NOTE | 2023-05-05 13:24 | P.MDCNMH ---
History of Present Illness H&P Date: 05/05/23 history of present illness; patient is a 32-year-old lady with past medical history significant for depression and suicidal ideation who presented to the ER because of thoughts of hurting herself. Patient stated that she has been depressed for the last few weeks. Had thoughts of hurting herself by cutting herself. Patient has been admitted to inpatient psych on multiple times on previous occasions.denies any homicidal thoughts. Denies any auditory or visual hallucinations Initial lab work in the ER showed WBC 9, hemoglobin 14.6, sodium 138, potassium 4.5, BUN 12, creatinine 0.7. Urine drug screen positive for marijuana and benzos Patient admitted to inpatient psych REVIEW OF SYSTEMS: CONSTITUTIONAL: No fever, no malaise, no fatigue. HEENT: No recent visual problems or hearing problems. Denied any sore throat. CARDIOVASCULAR: No chest pain, orthopnea, PND, no palpitations, no syncope. PULMONARY: No shortness of breath, no cough, no hemoptysis. GASTROINTESTINAL: No diarrhea, no nausea, no vomiting, no abdominal pain. NEUROLOGICAL: No headaches, no weakness, no numbness. HEMATOLOGICAL: Denies any bleeding or petechiae. GENITOURINARY: Denies any burning micturition, frequency, or urgency. MUSCULOSKELETAL/RHEUMATOLOGICAL: Complaining of back pain ENDOCRINE: Denies any polyuria or polydipsia. The rest of the 14-point review of systems is negative. PHYSICAL EXAMINATION: GENERAL: The patient is alert and oriented x3, not in any acute distress. Well developed, well nourished. HEENT: Pupils are round and equally reacting to light. EOMI. No scleral icterus. No conjunctival pallor. Normocephalic, atraumatic. No pharyngeal erythema. No thyromegaly. CARDIOVASCULAR: S1 and S2 present. No murmurs, rubs, or gallops. PULMONARY: Chest is clear to auscultation, no wheezing or crackles. ABDOMEN: Soft, nontender, nondistended, normoactive bowel sounds. No palpable organomegaly. MUSCULOSKELETAL: No joint swelling or deformity. EXTREMITIES: No cyanosis, clubbing, or pedal edema. NEUROLOGICAL: Gross neurological examination did not reveal any focal deficits. SKIN: No rashes. Assessment and plan major depression Suicidal thoughts. PTSD OCD Anxiety monitor vital signs Suicide precautions Elopement precautions Ordered lidocaine patch for her back pain Continue psych meds per psychiatry team DVT prophylaxis: Past Medical History Past Medical History: Fibromyalgia Additional Past Medical History / Comment(s): OCD, borderline personality disorder. states fibromyalgia but not diagnosed History of Any Multi-Drug Resistant Organisms: None Reported Past Surgical History: Section Additional Past Surgical History / Comment(s): I&D of cyst to buttocks Past Anesthesia/Blood Transfusion Reactions: No Reported Reaction Past Psychological History: Anxiety, Bipolar, PTSD Smoking Status: Current every day smoker Past Alcohol Use History: Occasional Past Drug Use History: Marijuana Medications and Allergies Home Medications Medication Instructions Recorded Confirmed Type Cyclobenzaprine [Flexeril] 10 mg PO DAILY PRN 12/03/21 05/04/23 History Aviane 1 tab PO DAILY 05/04/23 05/04/23 History Baclofen [Lioresal] 20 mg PO TID PRN 05/04/23 05/04/23 History Omeprazole [PriLOSEC] 20 mg PO DAILY 05/04/23 05/04/23 History Sertraline [Zoloft] 150 mg PO DAILY 05/04/23 05/04/23 History haloperidoL [Haldol] 5 mg PO DAILY PRN 05/04/23 05/04/23 History haloperidoL [Haloperidol] 10 mg PO DAILY 05/04/23 05/04/23 History lamoTRIgine [LaMICtal] 200 mg PO HS 05/04/23 05/04/23 History Allergies Allergy/AdvReac Type Severity Reaction Status Date / Time No Known Allergies Allergy Verified 05/04/23 20:39 Physical Exam Vitals: Vital Signs Temp Pulse Pulse Resp BP BP Pulse Ox 05/05/23 02:18 98.7 F 116 H 18 124/67 99 05/04/23 23:57 97.8 F 112 H 16 124/59 05/04/23 21:47 88 20 127/73 100 05/04/23 17:01 98.1 F 118 H 20 174/85 99 Intake and Output 05/04/23 05/05/23 05/05/23 22:59 06:59 14:59 Other: Weight 127.006 kg 127.006 kg Cranial Nerve Examination - Cranial Nerves Cranial Nerve II- Optic: Intact (Cranial nerves II through XII intact) Cranial Nerve III- Oculomotor: Intact Cranial Nerve IV- Trochlear: Intact Cranial Nerve V- Trigeminal: Intact Cranial Nerve - Abducens: Intact Cranial Nerve VII- Facial: Intact Cranial Nerve VIII- Auditory: Intact Cranial Nerve IX- Glossopharyngeal: Intact Cranial Nerve X- Vagus: Intact Cranial Nerve XI- Accessory: Intact Cranial Nerve XII- Hypoglossal: Intact Results CBC & Chem 7: 05/05/23 07:15 05/05/23 07:15 Labs: Abnormal Lab Results - Last 24 Hours (Table) 05/04/23 05/04/23 05/05/23 Range/Units 17:30 17:30 07:15 Glucose 114 H (74-99) mg/dL Urine Appearance Cloudy H (Clear) Urine Protein Trace H (Negative) Urine Blood Moderate H (Negative) Ur Leukocyte Esterase Small H (Negative) Urine WBC 9 H (0-5) /hpf Ur Squamous Epith Cells 9 H (0-4) /hpf Calcium Oxalate Crystal Moderate H (None) /hpf Urine Bacteria Rare H (None) /hpf Urine Mucus Rare H (None) /hpf U Benzodiazepines Scrn Detected H (NotDetected) U Marijuana (THC) Screen Detected H (NotDetected)
[2023-05-05] MEDS: TOPIRAMATE 25 MG TAB PO SCH (20:38)
[2023-05-05] MEDS: lamoTRIgine 100 MG TAB PO SCH (20:38)
[2023-05-05] MEDS: haloperidoL 5 MG TAB PO SCH (20:39)
[2023-05-05] MEDS: LIDOCAINE 5% PATCH TOPICAL PRN (21:09)
[2023-05-06] MEDS: BACLOFEN 10 MG TAB PO PRN ×2 (01:01→22:00)
[2023-05-06] MEDS: IBUPROFEN 400 MG TAB PO PRN ×2 (01:01→15:10)
[2023-05-06] MEDS: NICOTINE 14MG/24HR PATCH TRANSDERM SCH (08:11)
[2023-05-06] MEDS: TOPIRAMATE 25 MG TAB PO SCH ×2 (08:11→20:53)
[2023-05-06] MEDS: AVIANE PO SCH (08:11)
--- NOTE | 2023-05-06 09:46 | P.PN ---
Progress Note - Text Progress Note Date: 05/06/23 Interval History: Patient was seen sitting in the lounge today watching television and was direc table and agreeable to speak with sql report writer in the office. Patient spoke briefly about why she came in the hospital mainly complained about her "OCD symptoms". She states that today she is doing better in terms of her anxiety and mood. She spoke about wanting to taper down and reduce the dose of the haloperidol. We agreed to decrease down to 7 mg for tonight and observe. States that she slept fairly well last night. She claims that she has been trying to go to groups. She was focused on discharge possibly Monday. Claims that her mood is gradually improving. At this time patient denies any suicidal or homical ideations, intent or plan. Patient denies any current auditory, visual hallucinations and denies any paranoia or delusions. Patient denies any side effects from the medications and has been compliant with meds. Mental Status Exam: General Appearance: Patient appears to be stated age is alert, directable, and attempts to cooperate. Patient appears to have slightly disheveled hygiene and grooming. Patient has numerous piercings and numerous tattoos. Obese body habitus. Behavior: Patient is seated without any agitated behavior. Eye contact is appropriate. Speech: Patient's speech is fluent and nonpressured. Monotone. Spontaneous. Mood/Affect: Patient reports their mood is improving mildly, affect is congruent and constricted. Suicidality/Homicidality: Patient is currently denying any suicidal or homicidal ideation. Perceptions: Patient denies any visual hallucinations and denies any auditory hallucinations Though content/process: There is no evidence of any delusional thought content and thought process is linear and goal-directed. [place] Memory and concentration: AOX3, grossly intact for the purposes of this session Judgment and insight: Improving mildly IMPRESSIONS: Major depressive disorder Obsessive-compulsive disorder Borderline personality disorder Posttraumatic stress disorder PLAN: -Patient is admitted under voluntary status to MHU for stabilization of psychiatric symptoms and safety. Patient signed adult voluntary form and medication consent and is placed in patient's chart. -Medications : Luvox 50 mg by mouth at bedtime for depression/OCD/PTSD decrease Haldol 7 mg by mouth at bedtime for paranoia, possibly reduce further if tolerated tomorrow. Topamax 25 mg by mouth twice a day for off label mood and weight management Lamictal 200 mg by mouth at bedtime for mood stabilization -Haldol and Vistaril PRN for agitation/aggression -NRT - nicotine patch -SW on board for discharge planning. Encourage patient to participate in groups to work on coping skills.
[2023-05-06] MEDS: lamoTRIgine 100 MG TAB PO SCH (20:53)
[2023-05-06] MEDS ORDERED: haloperidoL 5 MG TAB PO SCH (21:00)
[2023-05-07] MEDS: BACLOFEN 10 MG TAB PO PRN ×2 (06:29→20:41)
[2023-05-07] MEDS: AVIANE PO SCH (09:23)
[2023-05-07] MEDS: TOPIRAMATE 25 MG TAB PO SCH ×2 (09:25→20:39)
[2023-05-07] MEDS: NICOTINE 14MG/24HR PATCH TRANSDERM SCH (09:25)
--- NOTE | 2023-05-07 12:05 | P.PN ---
Progress Note - Text Progress Note Date: 05/07/23 Interval History: Patient was seen sitting in with group today and was agreeable to direct her in the office. She claims that her anxiety and mood has been improving however states that last night she began hearing voices again. Claims that she did not sleep well last night. We spoke about needing to increase her haloperidol again which she was okay with. She continues to have a constricted affect, fairly concrete.She states that today she is doing better in terms of her anxiety and mood. She claims that she has been trying to go to groups. She was focused on discharge possibly Monday. Claims that her mood is gradually improving. At this time patient denies any suicidal or homical ideations, intent or plan. Patient denies any current auditory, visual hallucinations and denies any paranoia or delusions however did hear minor auditory hallucinations last night. Patient denies any side effects from the medications and has been compliant with meds. Mental Status Exam: General Appearance: Patient appears to be stated age is alert, directable, and attempts to cooperate. Patient appears to have proven hygiene and grooming. Patient has numerous piercings and numerous tattoos. Obese body habitus. Behavior: Patient is seated without any agitated behavior. Eye contact is a ppropriate. Speech: Patient's speech is fluent and nonpressured. Monotone. Spontaneous. Mood/Affect: Patient reports their mood is improving mildly, affect is congruent Suicidality/Homicidality: Patient is currently denying any suicidal or homicidal ideation. Perceptions: Patient denies any visual hallucinations and denies any auditory hallucinations Though content/process: There is no evidence of any delusional thought content and thought process is linear and goal-directed. [place] Memory and concentration: AOX3, grossly intact for the purposes of this session Judgment and insight: Improving mildly IMPRESSIONS: Major depressive disorder Obsessive-compulsive disorder Borderline personality disorder Posttraumatic stress disorder PLAN: -Patient is admitted under voluntary status to MHU for stabilization of psychiatric symptoms and safety. Patient signed adult voluntary form and medication consent and is placed in patient's chart. -Medications : Luvox 50 mg by mouth at bedtime for depression/OCD/PTSD continue Haldol 10 mg by mouth at bedtime for paranoia/hallucinations Topamax 25 mg by mouth twice a day for off label mood and weight management Lamictal 200 mg by mouth at bedtime for mood stabilization -Haldol and Vistaril PRN for agitation/aggression -NRT - nicotine patch -SW on board for discharge planning. Encourage patient to participate in groups to work on coping skills.
[2023-05-07 19:32] VITALS: RESP 16
[2023-05-07] MEDS: lamoTRIgine 100 MG TAB PO SCH (20:39)
[2023-05-07] MEDS: LIDOCAINE 5% PATCH TOPICAL PRN (20:42)
[2023-05-07] MEDS: IBUPROFEN 400 MG TAB PO PRN (20:48)
[2023-05-07] MEDS ORDERED: haloperidoL 5 MG TAB PO SCH (21:00)
[2023-05-08] MEDS: TOPIRAMATE 25 MG TAB PO SCH (08:11)
[2023-05-08] MEDS: NICOTINE 14MG/24HR PATCH TRANSDERM SCH (08:11)
[2023-05-08] MEDS: AVIANE PO SCH (08:13)
[2023-05-08 08:14] VITALS: BP 122/68; PULSE 111; TEMP 98.1
--- NOTE | 2023-05-08 11:23 | P.DS ---
Providers Date of admission: 05/04/23 21:10 Expected date of discharge: 05/08/23 Attending physician: Quinton Lo MD Consults: 05/05/23 07:50 Consult Physician Routine Consulting Provider: [facility] Hospitalists Consult Reason/Comments: history and physical Do you want consulting provider notified?: Yes Primary care physician: Onel Diggs - Discharge Diagnosis(es) (1) Major depressive disorder, recurrent severe without psychotic features Current Visit: Yes Status: Acute Priority: High (2) OCD (obsessive compulsive disorder) Current Visit: Yes Status: Acute Priority: High (3) Borderline personality disorder Current Visit: Yes Status: Chronic Priority: Medium (4) PTSD (post-traumatic stress disorder) Current Visit: Yes Status: Chronic Priority: Medium (5) Cannabis use disorder, mild, abuse Current Visit: Yes Status: Chronic Priority: Low Hospital Course: Admission HPI: Patient is a , employed, 32-year-old female with a significant history of OCD, BPD, and PTSD who presents to her hospital on 05/04/2023 for suicidal ideation. Patient presented to the hospital on 05/04/2023 for suicidal ideation with plan to cut her wrists with a box car checker. The patient signed herself voluntarily on to the psychiatric unit. The patient reports that she has been feeling increasingly depressed over the past few weeks. She reports that she has been expressing numerous stressors including being bullied by her ex-, her and her family being unable to move to a new home, and financial stressors. She reports that her mood has been deteriorating over the past 2-3 weeks. She endorses significant symptoms of depression including decreased motivation, decreased energy, low mood, crying episodes, and urges for self-harm. The patient does endorse significant symptoms of OCD including intrusive and gruesome "visions of my own ." The patient reports that she has previously attempted suicide by overdose. She reports that she did engage in self mutilating behavior by cutting her breast earlier this year. She reports vague auditory hallucinations of voices as if they are in another room. She reports no other hallucinations. She reports no paranoia or other delusions. She is not endorsing any significant symptoms of sheldon or hypomania. She denies any racing thoughts, mood lability, grandiosity, periods of excessive energy, or increased goal-directed activity. The patient does endorse significant symptoms of cluster B personality disorder including fear of abandonment, trust issues, self-injurious behavior, intermittent episodes of extreme dysphoria, and chronic feelings of emptiness. The patient is agreeable for voluntary admission and for medication adjustments. Patient states that she has been previously diagnosed with OCD, BPD, PTSD, and bipolar 2 disorder. Patient is currently open with [facility] and sees Dr. Harding. She reports that this is her fifth inpatient psychiatric admission. She reports that her last psychiatric admission was this past winter at [facility]. The patient has had previous trials of Celexa, Lamictal, trazodone, Zoloft, and latuda. She does report prior suicide attempts. Hospital course: Upon admission to the unit patient was initially presenting as depressed, suicidal, and disheveled. Patient was however directable and agreeable to commence treatment. Patient got along well with other patients on the unit and followed unit protocol. Patient was compliant with the medications and denied any side effects throughout hospital course. Patient was started on a regimen of Luvox and Topamax to address OCD/PTSD as well as for age and weight management. She was continued on her regimen of Haldol and Lamictal. Patient spoke of her stressors and engaged in therapy both group and individual. Patient was also seen by medical team for history and physical exam. Over the course the hospitalization, the patient displayed significant improvement in regards to her target symptoms of mood lability, suicidal thoughts, and frustration tolerance. She became more future and goal oriented and develop better insight and judgment. She is able to exercise appropriate coping skills. We discussed at length dialectical behavioral therapy techniques. On the day of discharge, the patient is not reporting any suicidal or homicidal ideation, intention, and/or plan. She is not reporting any auditory or visual hallucinations. She reports no paranoia or other delusions. The patient reported no access to firearms or other weapons. She reports wanting to live for her health and for her family. The patient does have a significant history of substance use and was counseled at great length abstaining from all substance and alcohol, tobacco, marijuana, and all illicit drugs. The patient reports no medical issues or concerns on the day of discharge and is denying any chest pain, shortness of breath, palpitations, tardive dyskinesia, or akathisia. She was encouraged to follow-up with her outpatient appointments for mental health and for primary care. Prior to discharge, family meeting will be arranged by the social work manager to answer any questions and ensure safety. Mental status exam: General Appearance: Patient appears to be stated age is alert, pleasant, and cooperative. Patient is in no acute distress and has fair hygiene and grooming. Obese body habitus. Numerous tattoos numerous piercings. Behavior: Patient is calmly seated without any agitated behavior. Speech: Patient's speech is fluent and nonpressured. Mood/Affect: Patient reports their mood is "much better", affect is congruent and euthymic to bright. Suicidality/Homicidality: Patient denies having any suicidal or homicidal ideation intent or plan. Perceptions: Patient denies any auditory or visual hallucinations. Though content/process: There is no evidence of any delusional thought content and thought process is linear and goal-directed. She is future and goal oriented. Memory and concentration: AOX3, grossly intact for the purposes of this session. Can spell "WORLD" backwards correctly. Judgment and insight: Improved with guarded prognosis Impression: Major depressive disorder Obsessive-compulsive disorder Borderline personality disorder Posttraumatic stress disorder Cannabis use disorder Plan: -Continue with discharge today as patient has improved and stabilized psychiatrically and is not currently an imminent threat to herself and/or others. Patient will remain at chronically elevated risk for harm to self and/or others due to her impulsivity and poor frustration tolerance. -Continue medications: Haldol 10 mg by mouth at bedtime for mood stabilization with 5 mg by mouth daily when necessary for agitation Luvox 50 mg by mouth at bedtime for OCD/PTSD/depression/anxiety Topamax 25 mg by mouth twice a day for off label use for PTSD Lamictal 200 mg by mouth at bedtime for mood stabilization -Patient was counseled on the need for medication compliance and appropriate follow-up at mental health and also primary care for medical issues. Patient verbalized understanding and agreed. -Social work to arrange for and conduct family meeting to ensure safety upon discharge and answer any questions/concerns. Social work also to arrange for patients follow up appointments with [facility] for psychiatric care along with follow up with primary care provider. -Patient counseled on abstaining from recreational drugs and marijuana and alcohol. Was informed/educated on the adverse effects on their physical and mental health. Patient verbally agreed and understood. -Patient was instructed to return to the hospital or seek immediate medical care if their psychiatric or medical symptoms do worsen or reoccur. -Psychoeducation and supportive therapy provided to patient. Risks and benefits of pharmacological treatment versus the risks and benefits of nontreatment weighed and discussed. Informed consent discussion held. Common side effects of psychotropics discussed such as, but not limited to headache, GI disturbance, sexual dysfunction, movement disorders, sedation, and orthostatic hypotension. Life threatening and blackbox warnings of prescribed medications also discussed. Potential risks of operating a vehicle or heavy machinery discussed with patient at length. Advised on importance of compliance and a reliable and responsible manner. Patient advised to review FDA consumer labeling of all medications prior to taking. Patient verbalized understanding of potential risks, and agrees with current treatment plan. Patient advised to medically contact physician/emergency personnel if any acute changes in condition occur. Vital Signs Temp 98.1 F 05/08/23 08:13 Pulse 111 H 05/08/23 08:13 Resp 16 05/08/23 08:13 BP 122/68 05/08/23 08:13 Pulse Ox 97 05/07/23 06:32 FiO2 Intake & Output 05/07/23 05/08/23 05/08/23 18:59 06:59 18:59 Weight 127.3 kg Laboratory Results WBC 9.0 k/uL (3.8-10.6) 05/05/23 07:15 RBC 4.82 m/uL (3.80-5.40) 05/05/23 07:15 Hgb 14.6 gm/dL (11.4-16.0) 05/05/23 07:15 Hct 44.2 % (34.0-46.0) 05/05/23 07:15 MCV 91.7 fL (80.0-100.0) 05/05/23 07:15 MCH 30.3 pg (25.0-35.0) 05/05/23 07:15 MCHC 33.0 g/dL (31.0-37.0) 05/05/23 07:15 RDW 14.6 % (11.5-15.5) 05/05/23 07:15 Plt Count 334 k/uL (150-450) 05/05/23 07:15 MPV 6.9 05/05/23 07:15 Neutrophils % 67 % 05/05/23 07:15 Lymphocytes % 24 % 05/05/23 07:15 Monocytes % 6 % 05/05/23 07:15 Eosinophils % 2 % 05/05/23 07:15 Basophils % 0 % 05/05/23 07:15 Neutrophils # 6.0 k/uL (1.3-7.7) 05/05/23 07:15 Lymphocytes # 2.1 k/uL (1.0-4.8) 05/05/23 07:15 Monocytes # 0.6 k/uL (0-1.0) 05/05/23 07:15 Eosinophils # 0.2 k/uL (0-0.7) 05/05/23 07:15 Basophils # 0.0 k/uL (0-0.2) 05/05/23 07:15 Sodium 138 mmol/L (137-145) 05/05/23 07:15 Potassium 4.5 mmol/L (3.5-5.1) 05/05/23 07:15 Chloride 102 mmol/L (98-107) 05/05/23 07:15 Carbon Dioxide 26 mmol/L (22-30) 05/05/23 07:15 Anion Gap 10 mmol/L 05/05/23 07:15 BUN 12 mg/dL (7-17) 05/05/23 07:15 Creatinine 0.70 mg/dL (0.52-1.04) 05/05/23 07:15 Est GFR (CKD-EPI)AfAm >90 (>60 ml/min/1.73 sqM) 05/05/23 07:15 Est GFR (CKD-EPI)NonAf >90 (>60 ml/min/1.73 sqM) 05/05/23 07:15 Glucose 114 mg/dL (74-99) H 05/05/23 07:[address] Glu mg/dL 103 mg/dL 05/05/23 07:15 Hemoglobin A1c 5.2 % (<=6.0) 05/05/23 07:15 Calcium 9.1 mg/dL (8.4-10.2) 05/05/23 07:15 Total Bilirubin 0.5 mg/dL (0.2-1.3) 05/05/23 07:15 AST 31 U/L (14-36) 05/05/23 07:15 ALT 30 U/L (4-34) 05/05/23 07:15 Alkaline Phosphatase 108 U/L (38-126) 05/05/23 07:15 Total Protein 7.9 g/dL (6.3-8.2) 05/05/23 07:15 Albumin 4.4 g/dL (3.5-5.0) 05/05/23 07:15 TSH 1.470 mIU/L (0.465-4.680) 05/05/23 07:15 Urine Color Yellow 05/04/23 17:30 Urine Appearance Cloudy (Clear) H 05/04/23 17:30 Urine pH 6.5 (5.0-8.0) 05/04/23 17:30 Ur Specific Pearl 1.029 (1.001-1.035) 05/04/23 17:30 Urine Protein Trace (Negative) H 05/04/23 17:30 Urine Glucose (UA) Negative (Negative) 05/04/23 17:30 Urine Ketones Negative (Negative) 05/04/23 17:30 Urine Blood Moderate (Negative) H 05/04/23 17:30 Urine Nitrite Negative (Negative) 05/04/23 17:30 Urine Bilirubin Negative (Negative) 05/04/23 17:30 Urine Urobilinogen <2.0 mg/dL (<2.0) 05/04/23 17:30 Ur Leukocyte Esterase Small (Negative) H 05/04/23 17:30 Urine RBC 5 /hpf (0-5) 05/04/23 17:30 Urine WBC 9 /hpf (0-5) H 05/04/23 17:30 Ur Squamous Epith Cells 9 /hpf (0-4) H 05/04/23 17:30 Calcium Oxalate Crystal Moderate /hpf (None) H 05/04/23 17:30 Urine Bacteria Rare /hpf (None) H 05/04/23 17:30 Urine Mucus Rare /hpf (None) H 05/04/23 17:30 Urine HCG, Qual Not Detected (Not Detectd) 05/04/23 17:30 Urine Opiates Screen Not Detected (NotDetected) 05/04/23 17:30 Ur Oxycodone Screen Not Detected (NotDetected) 05/04/23 17:30 Urine Methadone Screen Not Detected (NotDetected) 05/04/23 17:30 Ur Propoxyphene Screen Not Detected (NotDetected) 05/04/23 17:30 Ur Barbiturates Screen Not Detected (NotDetected) 05/04/23 17:30 Lamotrigine 3.4 ug/mL (2.0-15.0) 05/05/23 07:15 U Tricyclic Antidepress Not Detected (NotDetected) 05/04/23 17:30 Ur Phencyclidine Scrn Not Detected (NotDetected) 05/04/23 17:30 Ur Amphetamines Screen Not Detected (NotDetected) 05/04/23 17:30 U Methamphetamines Scrn Not Detected (NotDetected) 05/04/23 17:30 U Benzodiazepines Scrn Detected (NotDetected) H 05/04/23 17:30 Urine Cocaine Screen Not Detected (NotDetected) 05/04/23 17:30 U Marijuana (THC) Screen Detected (NotDetected) H 05/04/23 17:30 Influenza Type A (PCR) Not Detected (Not Detectd) 05/04/23 17:44 Influenza Type B (PCR) Not Detected (Not Detectd) 05/04/23 17:44 RSV (PCR) Not Detected (Not Detectd) 05/04/23 17:44 SARS-CoV-2 (PCR) Not Detected (Not Detectd) 05/04/23 17:44 Allergies Allergy/AdvReac Type Severity Reaction Status Date / Time No Known Allergies Allergy Verified 05/04/23 20:39 Patient Condition at Discharge: Stable Plan - Discharge Summary Discharge Rx Participant: Yes New Discharge Prescriptions: New haloperidoL [Haldol] 5 mg PO DAILY PRN 30 Days #30 tab PRN Reason: psychosis or agitation haloperidoL [Haldol] 10 mg PO HS 30 Days #60 tab Topiramate [Topamax] 25 mg PO BID 30 Days #60 tab fluvoxaMINE [Luvox] 50 mg PO HS 30 Days #30 tab Continue Aviane 1 tab PO DAILY Cyclobenzaprine [Flexeril] 10 mg PO DAILY PRN PRN Reason: Muscle Spasm Omeprazole [PriLOSEC] 20 mg PO DAILY Baclofen [Lioresal] 20 mg PO TID PRN PRN Reason: Muscle Spasm lamoTRIgine [LaMICtal] 200 mg PO HS 30 Days #30 tab Discontinued haloperidoL [Haloperidol] 10 mg PO DAILY Sertraline [Zoloft] 150 mg PO DAILY haloperidoL [Haldol] 5 mg PO DAILY PRN PRN Reason: psychosis or agitation Discharge Medication List Cyclobenzaprine [Flexeril] 10 mg PO DAILY PRN 12/03/21 [History] Aviane 1 tab PO DAILY 05/04/23 [History] Baclofen [Lioresal] 20 mg PO TID PRN 05/04/23 [History] Omeprazole [PriLOSEC] 20 mg PO DAILY 05/04/23 [History] Topiramate [Topamax] 25 mg PO BID 30 Days #60 tab 05/08/23 [Rx] fluvoxaMINE [Luvox] 50 mg PO HS 30 Days #30 tab 05/08/23 [Rx] haloperidoL [Haldol] 5 mg PO DAILY PRN 30 Days #30 tab 05/08/23 [Rx] haloperidoL [Haldol] 10 mg PO HS 30 Days #60 tab 05/08/23 [Rx] lamoTRIgine [LaMICtal] 200 mg PO HS 30 Days #30 tab 05/08/23 [Rx] Follow up Appointment(s)/Referral(s): [facility] [Outside] - 05/11/23 3:00 pm (05-11-23 3pm with Shala - in [place] office 05-31-[address] Harding - in [place] office) Onel Diggs MD [Primary Care Provider] - 1-2 days Patient Instructions/Handouts: Depression (DC), Generalized Anxiety Disorder (ED) Activity/Diet/Wound Care/Special Instructions: Avoid the use of street drugs and alcohol. Take all medications as prescribed. When you are in need of refills on your medications, please contact your medical provider and/or outpatient psychiatrist to have this done. Please go to scheduled outpatient appointments for aftercare treatment. If symptoms return or become worse, call the crisis line at and/or go to the nearest emergency room for evaluation. Discharge Disposition: HOME SELF-CARE
== END 2023-05-08 12:18 | disposition home or self-care (01) | DRG 885 ==
LOC: EC 15:39 → 3MHU 21:10
PROVIDERS: ADMIT Psychiatry & Neurology Psychiatry; ATTEND Psychiatry & Neurology Psychiatry
DX: F33.2 Major depressive disorder, recurrent severe without psychotic features (principal); F12.10 Cannabis abuse, uncomplicated; F60.3 Borderline personality disorder; F42.9 Obsessive-compulsive disorder, unspecified; F43.10 Post-traumatic stress disorder, unspecified; F17.210 Nicotine dependence, cigarettes, uncomplicated; M79.7 Fibromyalgia; Z20.822 Contact with and (suspected) exposure to COVID-19; Z28.311 Partially vaccinated for COVID-19; Z79.3 Long term (current) use of hormonal contraceptives; Z79.899 Other long term (current) drug therapy; Z71.41 Alcohol abuse counseling and surveillance of alcoholic; Z71.51 Drug abuse counseling and surveillance of drug abuser; Z71.6 Tobacco abuse counseling; Z91.51 Personal history of suicidal behavior; Z62.810 Personal history of physical and sexual abuse in childhood; Z91.410 Personal history of adult physical and sexual abuse; Z81.1 Family history of alcohol abuse and dependence; Z81.8 Family history of other mental and behavioral disorders
CPT/HCPCS: 80053; 80175; 80306; 81001; 81025; 82075; 83036; 84443; 85025; 87636; 99285